=== PATIENT | female | born 1950 | race Caucasian/White ===

== ENCOUNTER 2016-11-07 09:29 | Inpatient (IN) | payer OTHER ==
[~2016-11-07] VITALS: Ht 154.9 cm; Wt 75.0 kg
[~2016-11-07 09:29] MED LIST: ALBU90AE INHALATION; AMLO-147 PO; ASPI-664 PO; BACTDS PO; CALC-459 PO; DOCU-159 PO; FURO20TA3 PO; GEMF600T60 PO; LEVO500T72 PO; LOSA100T7 PO; OMEP20CA16 PO; POTA10TA18 PO
[2016-11-07] MEDS ORDERED: ALBUTEROL 0.5% (NEB) 2.5 MG/0.5 ML AMP INH STA (09:58)
[2016-11-07] MEDS ORDERED: IBUPROFEN 600 MG TAB PO ONE (10:00)
[2016-11-07] MEDS ORDERED: CEFTRIAXONE 1 GM/50 ML (PMX) 50 ML IVPB ONE (10:00)
[2016-11-07] MEDS ORDERED: SOD CHLORIDE 0.9% 1,000 ML IV ONE ×2 (10:00→12:30)
[2016-11-07] MEDS ORDERED: ALPRAZOLAM 0.25 MG TAB PO ONE (10:00)
[2016-11-07] MEDS ORDERED: VANCOMYCIN 1 GM (PMX) 250 ML IVPB SCH (10:00)
[2016-11-07 10:11] LABS: ADD SCAN DIFF NO
[2016-11-07 10:15] LABS: BASOPHILS % 0.3 % (0.0-2.0); EOSINOPHILS # 0.2 10^3/ul (0.0-0.5); EOSINOPHILS % 1.9 % (0.0-7.0); HEMATOCRIT 43.7 % (37.0-47.0); HEMOGLOBIN 13.9 g/dl (12.0-16.0); LYMPHOCYTES # 1.2 10^3/ul (0.8-2.9); LYMPHOCYTES % 12.2 % (15.0-51.0); MEAN CORPUSCULAR HEMOGLOBIN 29.3 pg (29.0-33.0); MEAN CORPUSCULAR HGB CONC 31.8 g/dl (32.0-37.0); MEAN PLATELET VOLUME 11.5 fl (7.4-10.4); MONOCYTE # 0.6 10^3/ul (0.3-0.9); MONOCYTES % 6.2 % (0.0-11.0); NEUTROPHIL # 7.8 10^3/ul (1.6-7.5); NEUTROPHILS % 78.9 % (39.0-77.0); PLATELET COUNT 180 10^3/UL (140-415); RED BLOOD COUNT 4.75 10^6/ul (4.20-5.40); RED CELL DISTRIBUTION WIDTH 13.2 % (11.5-14.5); WHITE BLOOD COUNT 9.9 10^3/ul (4.8-10.8)
--- NOTE | 2016-11-07 10:24 | RADRPT ---
PROCEDURE: Chest Radiograph. CLINICAL INDICATION: Abdominal pain. TECHNIQUE: Single frontal chest radiograph. COMPARISON: Chest radiograph 05/10/2016 FINDINGS: The heart is magnified. Atherosclerotic calcifications are present. There is bilateral perihilar i nfiltrates or edema . No pleural effusion is seen. The bones are intact. IMPRESSION: 1. Bilateral perihilar infiltrates or edema. 2. Atherosclerotic vascular disease. RPTAT: KK .Rey Ochoa MD, MD Date Time Electronically viewed and signed by .Rey Ochoa MD, on 11/07/2016 10:23 .B/
[2016-11-07 10:30] LABS: ALBUMIN 4.2 g/dl (3.3-4.9); CHLORIDE 99 mmol/L (97-110)
[2016-11-07 10:31] LABS: POTASSIUM 4.5 mmol/L (3.5-5.1); SODIUM 143 mmol/L (135-144)
[2016-11-07 10:33] LABS: ALANINE AMINOTRANSFERASE 32 IU/L (13-69); ALBUMIN/GLOBULIN RATIO 1.07; ALKALINE PHOSPHATASE 52 IU/L (42-121); ANION GAP 19 (8-16); ASPARTATE AMINO TRANSFERASE 33 IU/L (15-46); BILIRUBIN,INDIRECT 0.4 mg/dl (0-1.1); BILIRUBIN,TOTAL 0.4 mg/dl (0.2-1.3); BLOOD UREA NITROGEN 23 mg/dl (7-20); CALCIUM 9.6 mg/dl (8.4-10.2); CARBON DIOXIDE 30 mmol/L (21-31); CREATININE 0.74 mg/dl (0.44-1.00); GLUCOSE 93 mg/dl (70-220); TOTAL PROTEIN 8.1 g/dl (6.1-8.1)
[2016-11-07 10:35] LABS: INR 0.92; PROTIME 12.4 Sec (12.2-14.2)
[2016-11-07] MEDS ORDERED: BENA20TA48 PO (10:41)
[2016-11-07] MEDS ORDERED: PRED20TA PO (10:41)
[2016-11-07 10:42] LABS: B-TYPE NATRIURETIC PEPTIDE 194 PG/ML (0-125)
[2016-11-07 10:51] LABS: TROPONIN-I < 0.012 ng/ml (0.00-0.12)
[2016-11-07] MEDS ORDERED: FUROSEMIDE 40 MG INJ IV ONE (11:00)
[2016-11-07] MEDS ORDERED: AZITHROMYCIN 500MG/NS (PMX) 250 ML IVPB ONE (12:00)
[2016-11-07 12:06] LABS: ADD UMIC YES; URINE BILIRUBIN (Dip) NEGATIVE (NEGATIVE); URINE BLOOD (Dip) 2+ (NEGATIVE); URINE COLOR LT. YELLOW (YELLOW); URINE GLUCOSE (Dip) NEGATIVE (NEGATIVE); URINE KETONES (Dip) NEGATIVE (NEGATIVE); URINE LEUKOCYTE ESTERASE (Dip) TRACE (NEGATIVE); URINE NITRITE (Dip) NEGATIVE (NEGATIVE); URINE TOTAL PROTEIN (Dip) NEGATIVE (NEGATIVE); URINE UROBILINOGEN (Dip) 0.2 E.U./dL (0.1-1.0)
[2016-11-07] MEDS ORDERED: METHYLPREDNISOLONE 125 MG INJ IV ONE (12:30)
--- NOTE | 2016-11-07 12:34 | ERA ---
ER Documentation Chief Complaint Date/Time DATE: 11/07/16 TIME: 12:29 Chief Complaint FEVER ,CHILLS , DIZZINESS , COUGH , CHEST CONGESTION HPI 66-year-old woman presents with cough, fever, shortness of breath, generalized weakness and dizziness 3 days. She denies calf swelling, no chest pain, no vomiting or diarrhea, no abdominal pain. ROS All systems reviewed and are negative except as per history of present illness. Medications Home Meds Active Scripts Sulfamethoxazole-Trimethoprim* (Bactrim* DS) 800-160 Mg Tab, 1 TAB PO BID for 10 Days, TAB Bactrim DS 1 tab po BID w/full 8 OZs H20 Prov:HERRERASUSANA V. [employer] WORKER 05/16/16 Levofloxacin* (Levaquin*) 500 Mg Tablet, 500 MG PO DAILY@06 for 10 Days, TAB Prov:HERRERAJUSTIN V. [employer] WORKER 05/16/16 Reported Medications Prednisone* (Prednisone*) 20 Mg Tab, 20 MG PO DAILY, TAB 11/07/16 Benazepril Hcl* (Benazepril Hcl*) 20 Mg Tablet, 20 MG PO DAILY, #30 TAB 11/07/16 Calcium Carbonate (Calcium Carbonate) 500 Mg Tab.chew, 1000 MG PO BID, TAB.CHEW 05/10/16 Albuterol Sulfate (Proair Respiclick) 90 Mcg Aer.pow.ba, 1 PUFF INHALATION Q4, # 1 BOTTLE 05/10/16 Amlodipine Besylate* (Amlodipine Besylate*) 10 Mg Tablet, 10 MG PO DAILY, #30 TAB 05/10/16 Gemfibrozil* (Gemfibrozil*) 600 Mg Tablet, 600 MG PO BID, TAB 05/10/16 Potassium Citrate* (Potassium Citrate* ER) 10 Meq Tablet.sa, 10 MEQ PO DAILY, TAB.SA 05/10/16 Losartan Potassium* (Losartan Potassium*) 100 Mg Tablet, 100 MG PO DAILY, TAB 05/10/16 Omeprazole* (Omeprazole*) 20 Mg Capsule.dr, 20 MG PO DAILY, #30 CAP 05/10/16 Aspirin* (Aspirin* EC) 81 Mg Tablet.dr, 81 MG PO DAILY, TAB 05/10/16 Discontinued Reported Medications Docusate Sodium* (Docusate Sodium*) 100 Mg Capsule, 100 MG PO DAILY, #30 CAP 05/10/16 Furosemide* (Furosemide*) 20 Mg Tablet, 20 MG PO DAILY, #60 TAB 05/10/16 Allergies Allergies: Coded Allergies: No Known Drug Allergies (Verified Allergy, Unknown, 05/10/16) PMhx/Soc Obesity, coronary artery disease, congestive heart failure, chronic obstructive pulmonary disease, gastroesophageal reflux disease, hypertension, anemia, recent right lower extremity cellulitis History of Surgery: No Anesthesia Reaction: No Hx Neurological Disorder: Yes (CVA) Hx Respiratory Disorders: Yes (Pneumonia, COPD) Hx Cardiac Disorders: Yes (HTN) Hx Psychiatric Problems: No Hx Miscellaneous Medical Probl: Yes (Hyperlipidemia) Hx Alcohol Use: No Hx Substance Use: No Hx Tobacco Use: No Smoking Status: Former smoker FmHx Family History: No diabetes Physical Exam Vitals Vital Signs Date Time Temp Pulse Resp B/P Pulse Ox O2 Delivery O2 Flow Rate FiO2 11/07/16 11:50 87 98 40 11/07/16 10:16 103 98 40 11/07/16 09:31 102.8 118 20 131/95 92 Physical Exam GENERAL: Well-developed, febrile, dyspneic, tachycardic HEENT: Moist mucous membranes, pink conjunctiva, no cervical spine tenderness or step-off deformities, no goiter, no jaundice or icterus, extraocular movements intact without pain. No submandibular induration, and no pharyngeal erythema NEURO: Alert and oriented 3, cranial nerves II through XII intact bilaterally, pupils equal round reactive to light, no focal deficits or facial asymmetry, sensation intact distally Strength 5/5 in upper and lower extremities bilaterally CARDIAC: Tachycardic and regular, no murmurs rubs or gallops LUNGS: Bibasilar crackles, no obvious wheezing, pleural entry bilaterally, intercostal retractions, no stridor ABDOMEN: Soft nontender, no guarding, no rigidity, no rebound, no psoas sign no obturator sign. Normoactive bowel sounds SKIN: Warm and dry to touch, no abrasions, contusions, or hematomas, no lacerations, no ecchymosis, no target lesions, and without ulcers EXTREMITIES: No clubbing cyanosis, 1+ pitting edema in the lower extremities, calves are bilaterally symmetrical, no Homans sign, no popliteal cord sign. Distal pulses equal and bilateral PSYCH: Normal affect without agitation or irritability Result Diagram: 11/07/1656 11/07/1656 Results 24 hrs Laboratory Tests Test 11/07/16 09:56 11/07/16 11:50 11/07/16 12:19 White Blood Count 9.910^3/ul Red Blood Count 4.7510^6/ul Hemoglobin 13.9g/dl Hematocrit 43.7% Mean Corpuscular Volume 92.0fl Mean Corpuscular Hemoglobin 29.3pg Mean Corpuscular Hemoglobin Concent 31.8g/dl Red Cell Distribution Width 13.2% Platelet Count 13708^3/UL Mean Platelet Volume 11.5fl Neutrophils % 78.9% Lymphocytes % 12.2% Monocytes % 6.2% Eosinophils % 1.9% Basophils % 0.3% Nucleated Red Blood Cells % 0.0/100WBC Neutrophils # 7.810^3/ul Lymphocytes # 1.210^3/ul Monocytes # 0.610^3/ul Eosinophils # 0.210^3/ul Basophils # 0.010^3/ul Nucleated Red Blood Cells # 0.010^3/ul Prothrombin Time 12.4Sec Prothrombin Time Ratio 1.0 INR International Normalized Ratio 0.92 Sodium Level 143mmol/L Potassium Level 4.5mmol/L Chloride Level 99mmol/L Carbon Dioxide Level 30mmol/L Anion Gap 19 Blood Urea Nitrogen 23mg/dl Creatinine 0.74mg/dl Glucose Level 93mg/dl Lactic Acid Level 1.5mmol/L Calcium Level 9.6mg/dl Total Bilirubin 0.4mg/dl Direct Bilirubin 0.00mg/dl Indirect Bilirubin 0.4mg/dl Aspartate Amino Transf (AST/SGOT) 33IU/L Alanine Aminotransferase (ALT/SGPT) 32IU/L Alkaline Phosphatase 52IU/L Troponin I < 0.012ng/ml B-Type Natriuretic Peptide 194PG/ML Total Protein 8.1g/dl Albumin 4.2g/dl Globulin 3.90g/dl Albumin/Globulin Ratio 1.07 Lipase 99U/L Urine Color LT. YELLOW Urine Clarity CLEAR Urine pH 5.0 Urine Specific [place] 1.015 Urine Ketones NEGATIVE Urine Nitrite NEGATIVE Urine Bilirubin NEGATIVE Urine Urobilinogen 0.2 E.U./dL Urine Leukocyte Esterase TRACE Urine Microscopic RBC 5-10/HPF Urine Microscopic WBC 5-10/HPF Urine Hemoglobin 2+ Urine Glucose NEGATIVE% Urine Total Protein NEGATIVE Blood Gas Specimen Source Blood arterial Arterial Blood Date Drawn 11/07/2016 12:30:23 PM Arterial Blood pH (Temp corrected) 7.347 Arterial Blood pCO2 (Temp correct) 54.2mmhg Arterial Blood pO2 (Temp corrected) 122.9mmHG Arterial Blood HCO3 29.0mmol/L Arterial Blood Base Excess 2.4mmol/L Arterial Blood Oxygen Saturation 98.1mmHG Trevor Test ACCEPTAB Arterial Blood Gas Puncture Site Right Radial Arterial Blood Carboxyhemoglobin 0.3% Arterial Blood Methemoglobin 0.5% Blood Gas A-a O2 Differential 100.0mmHg Oxyhemoglobin Percent 97.3% Total Hemoglobin 12.4g/dl Blood Gas Temperature 37.0C Blood Gas Respiration Rate 16.0 Blood Gas Actual Respiration Rate 24 Blood Gas Modality MASK - BIPAP FiO2 40.0% Blood Gas IPAP/EPAP Ratio 15/5 Blood Gas Notified Whom JLD Blood Gas Notified Time 11/07/2016 12:49:11 PM Current Medications Medications (Trade) Dose Ordered Sig/Justin Route PRN Reason Start Time Stop Time Status Last Admin Dose Admin Sodium Chloride (NS) 1,000 ml @ 1,000 mls/hr Q1H ONCE IV 11/07/16 10:00 11/07/16 10:59 DC 11/07/16 10:22 Albuterol (Proventil 0.5% (Neb)) 10 mg ONCE STAT INH 11/07/16 09:58 11/07/16 10:01 DC 11/07/16 10:19 Ibuprofen (Motrin) 600 mg ONCE ONCE PO 11/07/16 10:00 11/07/16 10:01 DC 11/07/16 10:23 Alprazolam 0.5 mg 0.5 mg ONCE ONCE PO 11/07/16 10:00 11/07/16 10:01 DC 11/07/16 10:23 Ceftriaxone Sodium 50 ml @ 100 mls/hr ONCE ONCE IVPB 11/07/16 10:00 11/07/16 10:29 DC 11/07/16 10:23 Vancomycin HCl (Vancocin) 250 ml @ 125 mls/hr ONCE IVPB 11/07/16 10:00 11/07/16 11:59 DC 11/07/16 11:04 Furosemide 40 mg 40 mg ONCE ONCE IV 11/07/16 11:00 11/07/16 11:01 DC 11/07/16 11:04 Azithromycin (Zithromax 500mg/ NS (Pmx)) 250 ml @ 250 mls/hr ONCE ONCE IVPB 11/07/16 12:00 11/07/16 12:59 DC 11/07/16 12:30 Procedures/MDM IV line was established patient was placed on monitoring manager rhythm strip revealed a sinus tachycardia at 108 bpm with upright P and T waves. Patient was febrile. Blood and urine cultures have been ordered results are pending I will follow-up. EKG performed, read by me revealed a sinus tachycardia at 108 bpm, normal axis, narrow QRS complex, no concerning ST elevations or depressions noted. Patient's infectious symptoms have not stabilized and the patient is at risk of rapid decompensation. The patient will be admitted for careful hydration, antibiotic therapy, and infectious source control. Patient required immediate BiPAP therapy due to her dyspnea and work of breathing. Severe Sepsis Assessment: Infectious Source: Bilateral pneumonia Severe Sepsis Managment: Blood Cultures X 2 before broad spectrum antibiotics initiated within 3 hours of recognition. 30 ml/kg NS bolus will not be completed because patient has history of congestive heart failure and has mild to moderate decompensation today Initial Lactate: 1.5 Repeat Lactate not indicated as initial < 2.0 Critical Care: Time: 40 minutes, this was time separate from other procedures. Treatments/Evaluations: Emergent fluid management, while maintaining close respiratory support. Immediate broad spectrum antibiotic therapy. Simultaneous assessment for possible sources in order to direct therapy. Consideration for invasive and chemical support to prevent respiratory or cardiac collapse. Septic Shock Assessment (1 hour post 30 ml/kg fluid bolus): Hypotension (SBP < 90 or 40 mmHg drop, MAP < 65): Yes, although transient Lactic acid > 4.0 No Perfusion Reassessment for Septic Shock: Temp afebrile, Pulse 80, RR 16, BP 100/70 Heart Exam: Regular rate rhythm Lung Exam: Bilateral crackles Capillary Refill: Less than 2 second Peripheral Pulses: Radially present Skin: [place] warm and dry Hypotensive Treatment (not required for isolated lactic acid elevation): Comfort Care: No Central LIne: Not indicated Vasopressor started: Not indicated CBC was unremarkable, electrolytes revealed dehydration with a BUN/creatinine of 23/0.7, liver function tests were normal, troponin was negative. Lactic acid low at 1.5. ABG revealed a pH of 7.35, PCO2 54, PO2 122 revealing mild respiratory acidosis. BNP was low. Patient initially treated with furosemide 40 mg IV for suspected decompensated heart failure and hypertension. During multiple re-evaluations it was more clear that symptoms mostly attributed to bilateral infiltrates and possible early sepsis, and her blood pressure did fall so she required 2 L normal saline intravenously for early sepsis although further fluids will be held because of her CHF history. I treated her here with ceftriaxone 1 g IV, vancomycin 1 g IV , and azithromycin 500 mg IV with good response. She also received methylprednisolone 125 mg IV and albuterol 10 mg via nebulizer. She was successfully treated here in the emergency department with BiPAP and initial presentation. Influenza AB was negative. I considered further perfusion assessment with CVP measurement, SCVO2, bedside ultrasound volume assessment, passive leg raise, trial of further fluid bolus. And preceded with gentle IV hydration, IV antibiotics, and BiPAP therapy Accepting Care Team: Current data and ongoing care discussed. Time: Time of admission Primary Provider: Hospitalist Consulting: Cardiology and infectious disease Outstanding Data: none Departure Diagnosis: Primary Impression: Sepsis Qualified Code: A41.9 - Sepsis, due to unspecified organism Additional Impressions: Bilateral pneumonia Qualified Code: J18.9 - Pneumonia of both lower lobes due to infectious organism CHF (congestive heart failure) Qualified Code: I50.21 - Acute systolic congestive heart failure COPD (chronic obstructive pulmonary disease) Qualified Code: J44.1 - Chronic obstructive pulmonary disease with acute exacerbation Condition: [facility] MD November 07, 2016 12:34
[2016-11-07 12:49] LABS: Allen Test ACCEPTAB; Arterial Base Excess 2.4 mmol/L (-3.0-3); Arterial COHb 0.3 % (0.0-3.0); Arterial Fraction of Oxyhgb 97.3 % (93.0-99.0); Arterial MetHb 0.5 % (0.0-1.5); Arterial Total Hemglobin 12.4 g/dl (12.0-18.0); Blood Gas IEPAP 15/5; MODE MASK - BIPAP
[2016-11-07 14:10] VITALS: TEMP 98.9
[2016-11-07 15:07] VITALS: Ht 154.9 cm; Wt 75.0 kg
[2016-11-07 15:16] VITALS: BP 86/49; PULSE 76; RESP 22
[2016-11-07] MEDS ORDERED: SOD CHLORIDE 0.9% 500 ML IV ONE (16:00)
[2016-11-07 16:15] VITALS: PULSE 71
--- NOTE | 2016-11-07 16:39 | HP ---
Date/Time of Note Date/Time of Note DATE: 11/07/16 TIME: 16:27 Assessment/Plan VTE Prophylaxis VTE Prophylaxis Intervention: SCD's Lines/Catheters IV [facility]atheter Type (from [facility]): Saline Lock Urinary Cath still in place: No Assessment/Plan Chief Complaint/Hosp Course Impression and plan 1. Sepsis with pneumonia. Patient with hypotension and elevated temperature with source of pneumonia. Continue antibiotics for now. Follow-up on panculture. Await for clinical response. Bronchodilators as needed for dyspnea. 2. Reported O2 dependency. Patient is reports she does not know why she is in oxygen but states that she is on it indefinitely at home. She does not know how many liters of oxygen she is at home. Will titrate down as tolerated. Will get coin counter and wrapper pending clinical course. Considering patient's body composition suspect possible obesity hypoventilation syndrome. Will follow up 3. History of hypertension. Will hold antihypertensives for now considering hypertension. Will provide with IV fluids for now. 4. Dyslipidemia. Follow-up on fasting lipid panel. Statin to be started pending diagnostic result 5. Obesity. Weight reduction was advised Admission process 40 minutes Discussed plan of care with Dr. Barrientos Problems: HPI/ROS Admit Date/Time Admit Date/Time November 07, 2016 at 12:19 Hx of Present Illness There is a 66-year-old female with history of dysrhythmia, essential hypertension, CHF, asthma, reported O2 dependency, who came to [facility] due to reports of cough and generalized weakness along with increased shortness of breath for 1 week duration. According to the patient she started having cough with increased shortness of breath and generalized weakness for 1 week. She reported that one day prior to admission she started having subjective fevers and subsequently went to [facility] for further evaluation. She denies any sick contacts. She denies any chest pain or any abdominal pain or dysuria. She does report that she did take her influenza vaccine May last year. She has chest radiograph that did show bilateral perihilar infiltrates with clinical picture of that of pneumonia. She is also seen with fever as high as 101.0. No leukocytosis or elevation of heart rate however patient was seen slightly hypertensive with blood pressure as low as 86/49. Lactic acid seen at 1.2. Currently the patient remains alert and oriented. She notably did receive a dose of Solu-Medrol in the ER as well as antibiotic with vancomycin and ceftriaxone with good response. We will evaluate her for the aformentioned issues ROS 12 point review of systems obtained and entirely negative except as mentioned in history of present illness PMH/Family/Social Past Medical History Medical/surgical history 1.History of CHF with noted last echocardiogram done on May 11, 2016 with ejection fraction of 60% with stage I diastolic dysfunction 2. Essential hypertension 3. Obesity 4. History of dyslipidemia 5. History of asthma 6. Reported O2 dependency Family History Significant Family History: other (Mother and father: CAD) Social History Alcohol Use: none Smoking Status: Former smoker (3 years cigarette smoking 1 pack per day. Quit 3 years ago) Drug Use: none Exam/Review of Systems Vital Signs Vitals Vital Signs Date Time Temp Pulse Resp B/P Pulse Ox O2 Delivery O2 Flow Rate FiO2 11/07/16 16:15 71 11/07/16 15:52 Nasal Cannula 4.0 11/07/16 15:16 98.4 22 86/49 96 11/07/16 13:22 40 Exam Constitutional: alert Psych: nl mood/affect Eyes: nl conjunctiva Neck: non-tender, supple, No jvd Respiratory: wheezing Cardiovascular: regular rate and rhythm Gastrointestinal: non-tender, soft Musculoskeletal: No swelling Extremities: normal pulses Neurological: DISTRICT LEADER II-XII intact, nl mental status, nl speech Skin: nl turgor, No rash or lesions Labs Result Diagram: 11/07/1695511/07/16955 Medications Medications Current Medications Amlodipine Besylate (Norvasc) 10 mg DAILY PO ; Start 11/08/16 at 09:00 Aspirin (Halfprin) 81 mg DAILY PO ; Start 11/08/16 at 09:00 Benazepril HCl (Lotensin) 20 mg DAILY PO ; Start 11/08/16 at 09:00 Gemfibrozil (Lopid) 600 mg BID PO ; Start 11/07/16 at 21:00 Losartan Potassium (Cozaar) 100 mg DAILY PO ; Start 11/08/16 at 09:00 Potassium Citrate (Urocit-K) 10 meq DAILY PO ; Start 11/08/16 at 09:00 Calcium Carbonate (Oyster Shell Calcium) 2.5 gm BID PO ; Start 11/07/16 at 21:00 Pantoprazole 40 mg 40 mg DAILY@06 PO ; Start 11/08/16 at 06:00 Azithromycin 250 ml @ 250 mls/hr DAILY IVPB ; Start 11/08/16 at 09:00 Ceftriaxone Sodium 50 ml @ 100 mls/hr Q24H IVPB ; Start 11/08/16 at 09:00 Sodium Chloride (NS) 500 ml @ 500 mls/hr Q1H ONCE IV ; Start 11/07/16 at 16:00; Stop 11/07/16 at 16:59 BRAN HARRIS November 07, 2016 16:39
[2016-11-07] MEDS: ALBUTEROL/IPRATROPIUM (NEB) 3 ML AMP HHN SCH ×2 (17:00→21:42)
[2016-11-07] MEDS: SOD CHLORIDE 0.9% 1,000 ML IV SCH (17:35)
[2016-11-07 18:00] VITALS: BP 111/55; PULSE 77
[2016-11-07 20:02] VITALS: BP 94/51; RESP 18
[2016-11-07 20:18] VITALS: PULSE 73
[2016-11-07] MEDS: predniSONE 20 MG TAB PO SCH (21:33)
[2016-11-07] MEDS: GEMFIBROZIL 600 MG TAB PO SCH (21:33)
[2016-11-07] MEDS: CALCIUM CARBONATE 1.25 GM TAB PO SCH (21:33)
[2016-11-08] VITALS (12 sets, daily range): BP systolic 100–161; BP diastolic 56–74; PULSE 63–102; RESP 17–21
[2016-11-08] MEDS: ALBUTEROL 0.083% (NEB) 2.5 MG/3 ML AMP HHN PRN (03:30)
[2016-11-08] MEDS: PANTOPRAZOLE (EC) 40 MG TAB PO SCH (06:17)
[2016-11-08] MEDS: SOD CHLORIDE 0.9% 1,000 ML IV SCH ×2 (06:17→22:14)
[2016-11-08] MEDS: ALBUTEROL/IPRATROPIUM (NEB) 3 ML AMP HHN SCH ×4 (08:33→20:37)
[2016-11-08 08:37] LABS: ADD SCAN DIFF NO
[2016-11-08] MEDS ORDERED: BENAZEPRIL 20 MG TAB PO SCH (09:00)
[2016-11-08] MEDS ORDERED: CEFTRIAXONE 2 GM INJ IVPB SCH (09:00)
[2016-11-08] MEDS ORDERED: LOSARTAN 50 MG TAB PO SCH (09:00)
[2016-11-08 09:07] LABS: ABNORMAL IP MESSAGE 1; HEMATOCRIT 40.5 % (37.0-47.0); HEMOGLOBIN 12.6 g/dl (12.0-16.0); LYMPHOCYTES # 0.3 10^3/ul (0.8-2.9); LYMPHOCYTES % 5.3 % (15.0-51.0); MEAN CORPUSCULAR HEMOGLOBIN 29.4 pg (29.0-33.0); MEAN CORPUSCULAR HGB CONC 31.1 g/dl (32.0-37.0); MEAN CORPUSCULAR VOLUME 94.6 fl (82.0-101.0); MEAN PLATELET VOLUME 10.9 fl (7.4-10.4); MONOCYTE # 0.3 10^3/ul (0.3-0.9); MONOCYTES % 4.3 % (0.0-11.0); NEUTROPHIL # 5.6 10^3/ul (1.6-7.5); NEUTROPHILS % 89.6 % (39.0-77.0); PLATELET COUNT 196 10^3/UL (140-415); RED BLOOD COUNT 4.28 10^6/ul (4.20-5.40); WHITE BLOOD COUNT 6.3 10^3/ul (4.8-10.8)
[2016-11-08 09:20] LABS: CALCIUM 8.8 mg/dl (8.4-10.2); CREATININE 0.62 mg/dl (0.44-1.00)
[2016-11-08] MEDS: ASPIRIN (EC) 81 MG TAB PO SCH (09:20)
[2016-11-08] MEDS: POTASSIUM CITRATE (SR) 5 MEQ TAB PO SCH (09:20)
[2016-11-08] MEDS: predniSONE 20 MG TAB PO SCH ×2 (09:20→22:12)
[2016-11-08] MEDS: GEMFIBROZIL 600 MG TAB PO SCH ×2 (09:20→21:00)
[2016-11-08] MEDS: CALCIUM CARBONATE 1.25 GM TAB PO SCH ×2 (09:20→22:13)
--- NOTE | 2016-11-08 10:20 | PN ---
Date/Time of Note Date/Time of Note DATE: 11/08/16 TIME: 10:15 Assessment/Plan VTE Prophylaxis VTE Prophylaxis Intervention: SCD's Lines/Catheters [facility]from [facility] Peripheral IV Urinary Cath still in place: No Assessment/Plan Chief Complaint/Hosp Course Impression and plan 1. Sepsis with pneumonia. Patient with hypotension and elevated temperature with source of pneumonia. Continue antibiotics for now. Antitussives added for cough. 2. Reported O2 dependency. Patient is reports she does not know why she is in oxygen but states that she is on it indefinitely at home. She does not know how many liters of oxygen she is at home. . Considering patient's body composition suspect possible obesity hypoventilation syndrome. Continue to titrate down or tolerated 3. History of hypertension. Stable at present. Will resume antihypertensive 4. Dyslipidemia. on low fat/low cholesterol diet . awaiting lipid panel result 5. Obesity. Weight reduction was advised Disposition and plan: Continue antibiotics. Antitussives added. await clinical improvement of respiratory status. Discussed plan of care with Dr. Barrientos Problems: Subjective 24 Hr Interval Summary Free Text/Dictation Reports better breathing. Still has moderate cough with reported productive white phlegm Exam/Review of Systems Vital Signs Vitals Vital Signs Date Time Temp Pulse Resp B/P Pulse Ox O2 Delivery O2 Flow Rate FiO2 11/08/16 08:35 4.0 11/08/16 08:35 66 26 94 Nasal Cannula 11/08/16 08:04 98.2 147/69 11/07/16 13:22 40 Intake and Output 11/07/16 11/07/16 11/08/16 15:00 23:00 07:00 Intake Total 1050 ml 500 ml 1350 ml Balance 1050 ml 500 ml 1350 ml Exam Constitutional: alert, oriented Psych: nl mood/affect Head: normocephalic Eyes: nl conjunctiva Neck: non-tender, supple Respiratory: wheezing Cardiovascular: regular rate and rhythm Gastrointestinal: non-tender, soft Musculoskeletal: nl extremities to inspection Extremities: normal pulses Neurological: RAIL CAR UNLOADER II-XII intact, nl mental status, nl speech Skin: nl turgor Results Result Diagram: 11/08/16 0757 11/08/16 0757 Results 24 hrs Laboratory Tests Test 11/07/16 11:50 11/07/16 12:19 11/07/16 12:20 11/07/16 13:44 Urine Color LT. YELLOW Urine Clarity CLEAR Urine pH 5.0 Urine Specific [place] 1.015 Urine Ketones NEGATIVE Urine Nitrite NEGATIVE Urine Bilirubin NEGATIVE Urine Urobilinogen 0.2 E.U./dL Urine Leukocyte Esterase TRACE H Urine Microscopic RBC 5-10 Urine Microscopic WBC 5-10 Urine Hemoglobin 2+ H Urine Glucose NEGATIVE Urine Total Protein NEGATIVE Blood Gas Specimen Source Blood arterial Arterial Blood Date Drawn 11/07/2016 12:30:23 PM Arterial Blood pH (Temp corrected) 7.347 L Arterial Blood pCO2 (Temp correct) 54.2 H Arterial Blood pO2 (Temp corrected) 122.9 H Arterial Blood HCO3 29.0 H Arterial Blood Base Excess 2.4 Arterial Blood Oxygen Saturation 98.1 H Trevor Test ACCEPTAB Arterial Blood Gas Puncture Site Right Radial Arterial Blood Carboxyhemoglobin 0.3 Arterial Blood Methemoglobin 0.5 Blood Gas A-a O2 Differential 100.0 H Oxyhemoglobin Percent 97.3 Total Hemoglobin 12.4 Blood Gas Temperature 37.0 Blood Gas Respiration Rate 16.0 Blood Gas Actual Respiration Rate 24 Blood Gas Modality MASK - BIPAP FiO2 40.0 Blood Gas IPAP/EPAP Ratio 15 Blood Gas Notified Whom JLD Blood Gas Notified Time 11/07/2016 12:49:11 PM Lactic Acid Level 1.5 1.2 Test 11/08/16 07:57 White Blood Count 6.3 # Red Blood Count 4.28 Hemoglobin 12.6 Hematocrit 40.5 Mean Corpuscular Volume 94.6 Mean Corpuscular Hemoglobin 29.4 Mean Corpuscular Hemoglobin Concent 31.1 L Red Cell Distribution Width 13.0 Platelet Count 196 Mean Platelet Volume 10.9 H Neutrophils % 89.6 H Lymphocytes % 5.3 L Monocytes % 4.3 Eosinophils % 0.0 Basophils % 0.0 Nucleated Red Blood Cells % 0.0 Neutrophils # 5.6 Lymphocytes # 0.3 L Monocytes # 0.3 Eosinophils # 0.0 Basophils # 0.0 Nucleated Red Blood Cells # 0.0 Sodium Level 142 Potassium Level 4.0 Chloride Level 105 Carbon Dioxide Level 31 Anion Gap 10 # Blood Urea Nitrogen 17 Creatinine 0.62 Glucose Level 148 # Calcium Level 8.8 Medications Medications Current Medications Amlodipine Besylate (Norvasc) 10 mg DAILY PO ; Start 11/08/16 at 09:00; Status Future Hold Aspirin (Halfprin) 81 mg DAILY PO Last administered on 11/08/16 09:20; Admin Dose 81 MG; Start 11/08/16 at 09:00 Benazepril HCl (Lotensin) 20 mg DAILY PO ; Start 11/08/16 at 09:00; Status Future Hold Gemfibrozil (Lopid) 600 mg BID PO Last administered on 11/08/16 09:20; Admin Dose 600 MG; Start 11/07/16 at 21:00 Losartan Potassium (Cozaar) 100 mg DAILY PO ; Start 11/08/16 at 09:00; Status Future Hold Potassium Citrate (Urocit-K) 10 meq DAILY PO Last administered on 11/08/16 09: 20; Admin Dose 10 MEQ; Start 11/08/16 at 09:00 Calcium Carbonate (Oyster Shell Calcium) 2.5 gm BID PO Last administered on 11/08 09:20; Admin Dose 2.5 GM; Start 11/07/16 at 21:00 Pantoprazole 40 mg 40 mg DAILY@06 PO Last administered on 11/08/16 06:17; Admin Dose 40 MG; Start 11/08/16 at 06:00 Azithromycin 250 ml @ 250 mls/hr DAILY IVPB ; Start 11/08/16 at 09:00 Ceftriaxone Sodium 50 ml @ 100 mls/hr Q24H IVPB ; Start 11/08/16 at 09:00 Sodium Chloride (NS) 1,000 ml @ 75 mls/hr [id number] IV Last administered on 06:17; Admin Dose 75 MLS/HR; Start 11/07/16 at 17:00 Prednisone (Prednisone) 40 mg BID PO Last administered on 11/08/16 09:20; Admin Dose 40 MG; Start 11/07/16 at 21:00 Guaifenesin (Mucinex) 600 mg BID PO ; Start 11/08/16 at 10:00 Guaifenesin/ Codeine Phosphate (Robitussin Ac Liquid Cup) 10 ml Q4H PRN PO cough; Start 11/08/16 at 10:00 BRAN HARRIS November 08, 2016 10:19
[2016-11-08] MEDS: GUAIFENESIN LA 600 MG TABSR PO SCH ×2 (12:57→22:12)
[2016-11-08] MEDS: AMLODIPINE 10 MG TAB PO SCH (12:57)
[2016-11-08] MEDS: AZITHROMYCIN 500MG/NS (PMX) 250 ML IVPB SCH (12:58)
[2016-11-08] MEDS: CEFTRIAXONE 2 GM/NS 50 ML IVPB SCH (12:58)
[2016-11-08] MEDS: ACETAMINOPHEN 325 MG TAB PO PRN (18:57)
[2016-11-09] VITALS (12 sets, daily range): BP systolic 121–151; BP diastolic 60–71; PULSE 61–83; RESP 18–20
[2016-11-09] MEDS: PANTOPRAZOLE (EC) 40 MG TAB PO SCH (06:25)
[2016-11-09 07:36] LABS: ADD SCAN DIFF NO
[2016-11-09 07:42] LABS: ABNORMAL IP MESSAGE 1; HEMATOCRIT 39.7 % (37.0-47.0); LYMPHOCYTES # 0.3 10^3/ul (0.8-2.9); MEAN CORPUSCULAR HEMOGLOBIN 28.6 pg (29.0-33.0); MEAN CORPUSCULAR HGB CONC 30.2 g/dl (32.0-37.0); MEAN CORPUSCULAR VOLUME 94.5 fl (82.0-101.0); MEAN PLATELET VOLUME 10.8 fl (7.4-10.4); MONOCYTE # 0.4 10^3/ul (0.3-0.9); MONOCYTES % 6.9 % (0.0-11.0); NEUTROPHIL # 4.8 10^3/ul (1.6-7.5); NEUTROPHILS % 85.3 % (39.0-77.0); PLATELET COUNT 173 10^3/UL (140-415); WHITE BLOOD COUNT 5.6 10^3/ul (4.8-10.8)
[2016-11-09] MEDS: ALBUTEROL/IPRATROPIUM (NEB) 3 ML AMP HHN SCH ×4 (08:13→20:52)
[2016-11-09] MEDS: GUAIFENESIN/CODEINE 5ML CUP PO PRN ×2 (08:33→14:32)
--- NOTE | 2016-11-09 10:00 | PN ---
Date/Time of Note Date/Time of Note DATE: 11/09/16 TIME: 09:57 Assessment/Plan Lines/Catheters IV Catheter Type (from [facility]): Saline Lock Urinary Cath still in place: No Assessment/Plan Chief Complaint/Hosp Course Impression and plan 1. Sepsis with pneumonia. Afebrile at present.. Continue antibiotics for now. Antitussives added for cough. 2. Reported O2 dependency. Patient is reports she does not know why she is in oxygen but states that she is on it indefinitely at home. . Considering patient 's body composition suspect possible obesity hypoventilation syndrome. Continue to monitor for ability to titrate down on O2 3. History of hypertension. Stable at present. Will resume antihypertensive 4. Dyslipidemia. on low fat/low cholesterol diet 5. Obesity. Weight reduction was advised Disposition and plan: Continue antibiotics. Physical therapy to follow. Await clinical improvement of respiratory status Discussed plan of care with Dr. Barrientos Problems: Subjective 24 Hr Interval Summary Free Text/Dictation Still reports having moderate cough Exam/Review of Systems Vital Signs Vitals Vital Signs Date Time Temp Pulse Resp B/P Pulse Ox O2 Delivery O2 Flow Rate FiO2 11/09/16 08:24 61 11/09/16 08:17 24 95 Nasal Cannula 3.0 11/09/16 07:44 98.2 124/71 11/07/16 13:22 40 Intake and Output 11/08/16 11/08/16 11/09/16 15:00 23:00 07:00 Intake Total 200 ml Balance 200 ml Exam Constitutional: alert, obese, oriented Psych: nl mood/affect Head: normocephalic Neck: supple Respiratory: congested cough Gastrointestinal: non-tender, soft Musculoskeletal: No swelling Neurological: CLINICAL PSYCHIATRIST II-XII intact, nl mental status, nl speech Skin: nl turgor Results Result Diagram: 11/09/16 0710 11/08/16 0757 Results 24 hrs Laboratory Tests Test 11/09/16 07:10 White Blood Count 5.6 Red Blood Count 4.20 Hemoglobin 12.0 Hematocrit 39.7 Mean Corpuscular Volume 94.5 Mean Corpuscular Hemoglobin 28.6 L Mean Corpuscular Hemoglobin Concent 30.2 L Red Cell Distribution Width 13.0 Platelet Count 173 Mean Platelet Volume 10.8 H Neutrophils % 85.3 H Lymphocytes % 6.0 L Monocytes % 6.9 Eosinophils % 0.0 Basophils % 0.0 Nucleated Red Blood Cells % 0.0 Neutrophils # 4.8 Lymphocytes # 0.3 L Monocytes # 0.4 Eosinophils # 0.0 Basophils # 0.0 Nucleated Red Blood Cells # 0.0 Medications Medications Current Medications Amlodipine Besylate (Norvasc) 10 mg DAILY PO Last administered on 11/08/16 12: 57; Admin Dose 10 MG; Start 11/08/16 at 09:00; Status Future hold Aspirin (Halfprin) 81 mg DAILY PO Last administered on 11/08/16 09:20; Admin Dose 81 MG; Start 11/08/16 at 09:00 Benazepril HCl (Lotensin) 20 mg DAILY PO ; Start 11/08/16 at 09:00; Status Future Hold Gemfibrozil (Lopid) 600 mg BID PO Last administered on 11/08/16 21:00; Admin Dose 600 MG; Start 11/07/16 at 21:00 Losartan Potassium (Cozaar) 100 mg DAILY PO ; Start 11/08/16 at 09:00; Status Future Hold Potassium Citrate (Urocit-K) 10 meq DAILY PO Last administered on 11/08/16 09: 20; Admin Dose 10 MEQ; Start 11/08/16 at 09:00 Calcium Carbonate (Oyster Shell Calcium) 2.5 gm BID PO Last administered on 11/08 22:13; Admin Dose 2.5 GM; Start 11/07/16 at 21:00 Pantoprazole 40 mg 40 mg DAILY@06 PO Last administered on 11/09/16 06:25; Admin Dose 40 MG; Start 11/08/16 at 06:00 Azithromycin 250 ml @ 250 mls/hr DAILY IVPB Last administered on 11/08/16 12: 58; Admin Dose 250 MLS/HR; Start 11/08/16 at 09:00 Ceftriaxone Sodium 50 ml @ 100 mls/hr Q24H IVPB Last administered on 11/08/16 12:58; Admin Dose 100 MLS/HR; Start 11/08/16 at 09:00 Sodium Chloride (NS) 1,000 ml @ 75 mls/hr [id number] IV Last administered on 22:14; Admin Dose 75 MLS/HR; Start 11/07/16 at 17:00 Prednisone (Prednisone) 40 mg BID PO Last administered on 11/08/16 22:12; Admin Dose 40 MG; Start 11/07/16 at 21:00 Guaifenesin (Mucinex) 600 mg BID PO Last administered on 11/08/16 22:12; Admin Dose 600 MG; Start 11/08/16 at 10:00 Guaifenesin/ Codeine Phosphate (Robitussin Ac Liquid Cup) 10 ml Q4H PRN PO cough Last administered on 11/09/16 08:33; Admin Dose 10 ML; Start 11/08/16 at 10:00 Acetaminophen (Tylenol Tab) 650 mg Q6H PRN PO PAIN AND OR ELEVATED TEMP Last administered on 11/08/16 18:57; Admin Dose 650 MG; Start 11/08/16 at 19:00 BRAN HARRIS November 09, 2016 10:00
[2016-11-09 10:03] LABS: POTASSIUM 4.4 mmol/L (3.5-5.1)
[2016-11-09 10:05] LABS: CREATININE 0.55 mg/dl (0.44-1.00)
[2016-11-09 10:06] LABS: CALCIUM 9.1 mg/dl (8.4-10.2)
[2016-11-09] MEDS: CEFTRIAXONE 2 GM/NS 50 ML IVPB SCH (10:21)
[2016-11-09] MEDS: POTASSIUM CITRATE (SR) 5 MEQ TAB PO SCH (10:21)
[2016-11-09 10:22] LABS: CHOL/HDL RATIO 2.5 RATIO
[2016-11-09] MEDS: AMLODIPINE 10 MG TAB PO SCH (10:22)
[2016-11-09] MEDS: ASPIRIN (EC) 81 MG TAB PO SCH (10:22)
[2016-11-09] MEDS: GUAIFENESIN LA 600 MG TABSR PO SCH ×2 (10:22→23:14)
[2016-11-09] MEDS: CALCIUM CARBONATE 1.25 GM TAB PO SCH ×2 (10:22→23:15)
[2016-11-09] MEDS: predniSONE 20 MG TAB PO SCH ×2 (10:22→23:14)
[2016-11-09] MEDS: BENZONATATE 100 MG CAP PO SCH ×3 (11:00→23:15)
[2016-11-09] MEDS: AZITHROMYCIN 500MG/NS (PMX) 250 ML IVPB SCH (11:54)
[2016-11-09] MEDS: GEMFIBROZIL 600 MG TAB PO SCH ×2 (12:06→23:14)
[2016-11-09] MEDS: SOD CHLORIDE 0.9% 1,000 ML IV SCH (13:54)
--- NOTE | 2016-11-09 21:45 | RADRPT ---
PROCEDURE: XR Chest. CLINICAL INDICATION: Shortness of breath. TECHNIQUE: Single frontal view. COMPARISON: 11/07/2016. FINDINGS: There is bilateral air space and interstitial disease consistent with pulmonary edema. There are lo w lung volumes. There is increased density of the right hilum. The heart is enlarged. There is calcification in the aorta consistent with atherosclerosis. There is no pleural effusion. There is no pneumothorax. IMPRESSION: 1. Pulmonary edema. 2. Increased density in the right hilum. This may indicate a mass. Correlation with CT scan of e chest should be considered. 3. Cardiomegaly and atherosclerosis. RPTAT: QQ .Lorenzo Andino MD, MD Date Time Electronically viewed and signed by .Lorenzo Andino MD, MD on 11/09/2016 21:44 .R/
[2016-11-10] VITALS (12 sets, daily range): BP systolic 121–185; BP diastolic 58–79; PULSE 58–109; RESP 16–20
[2016-11-10] MEDS ORDERED: hydrALAzine 20 MG INJ IV PRN (05:00)
[2016-11-10] MEDS: PANTOPRAZOLE (EC) 40 MG TAB PO SCH (05:37)
[2016-11-10] MEDS: ACETAMINOPHEN 325 MG TAB PO PRN (05:37)
[2016-11-10 08:38] LABS: ADD SCAN DIFF NO
[2016-11-10 08:49] LABS: BASOPHILS % 0.2 % (0.0-2.0); HEMATOCRIT 45.3 % (37.0-47.0); LYMPHOCYTES % 16.9 % (15.0-51.0); MEAN CORPUSCULAR HEMOGLOBIN 29.1 pg (29.0-33.0); MEAN CORPUSCULAR HGB CONC 30.9 g/dl (32.0-37.0); MEAN CORPUSCULAR VOLUME 94.2 fl (82.0-101.0); MEAN PLATELET VOLUME 11.1 fl (7.4-10.4); MONOCYTE # 0.3 10^3/ul (0.3-0.9); MONOCYTES % 5.2 % (0.0-11.0); NEUTROPHIL # 4.3 10^3/ul (1.6-7.5); NEUTROPHILS % 74.4 % (39.0-77.0); PLATELET COUNT 212 10^3/UL (140-415); RED BLOOD COUNT 4.81 10^6/ul (4.20-5.40); RED CELL DISTRIBUTION WIDTH 13.2 % (11.5-14.5); WHITE BLOOD COUNT 5.8 10^3/ul (4.8-10.8)
[2016-11-10] MEDS: ALBUTEROL/IPRATROPIUM (NEB) 3 ML AMP HHN SCH ×4 (08:53→21:54)
[2016-11-10 09:29] LABS: POTASSIUM 4.5 mmol/L (3.5-5.1)
[2016-11-10 09:31] LABS: CREATININE 0.55 mg/dl (0.44-1.00)
[2016-11-10 09:32] LABS: CALCIUM 9.8 mg/dl (8.4-10.2)
[2016-11-10] MEDS: CEFTRIAXONE 2 GM/NS 50 ML IVPB SCH (10:22)
[2016-11-10] MEDS: AZITHROMYCIN 500MG/NS (PMX) 250 ML IVPB SCH (10:22)
[2016-11-10] MEDS: predniSONE 20 MG TAB PO SCH ×2 (10:23→20:05)
[2016-11-10] MEDS: CALCIUM CARBONATE 1.25 GM TAB PO SCH ×2 (10:23→20:04)
[2016-11-10] MEDS: GUAIFENESIN LA 600 MG TABSR PO SCH ×2 (10:23→20:04)
[2016-11-10] MEDS: GEMFIBROZIL 600 MG TAB PO SCH ×2 (10:24→20:04)
[2016-11-10] MEDS: AMLODIPINE 10 MG TAB PO SCH (10:24)
[2016-11-10] MEDS: FUROSEMIDE 40 MG INJ IV SCH (10:24)
[2016-11-10] MEDS: POTASSIUM CITRATE (SR) 5 MEQ TAB PO SCH (10:24)
[2016-11-10] MEDS: BENZONATATE 100 MG CAP PO SCH ×3 (10:25→20:05)
[2016-11-10] MEDS: ASPIRIN (EC) 81 MG TAB PO SCH (10:25)
--- NOTE | 2016-11-10 10:26 | PN ---
Date/Time of Note Date/Time of Note DATE: 11/10/16 TIME: 10:24 Assessment/Plan VTE Prophylaxis VTE Prophylaxis Intervention: ambulation, SCD's Lines/Catheters IV [facility]from [facility] Peripheral IV Urinary Cath still in place: No Assessment/Plan Chief Complaint/Hosp Course Impression and plan 1. Sepsis with pneumonia. Afebrile at present.. Continue antibiotics for now. Antitussives added for cough.. Recent x-ray with ulnar edema and possible mass. Follow-up CT scan of the chest 2. Reported O2 dependency. Patient is reports she does not know why she is in oxygen but states that she is on it indefinitely at home. . Considering patient 's body composition suspect possible obesity hypoventilation syndrome. Continue titration of O2 down as tolerated 3. History of hypertension. Stable at present. Will resume antihypertensive 4. Dyslipidemia. on low fat/low cholesterol diet 5. Obesity. Weight reduction was advised Disposition and plan: Continue antibiotics. We'll order CT scan of the chest to follow-up on possible mass in lung. Continue with antitussives. We'll get valet parker pending clinical course Discussed plan of care with Dr. Barrientos Problems: Subjective 24 Hr Interval Summary Free Text/Dictation Reports better breathing. Still states she has moderate cough Exam/Review of Systems Vital Signs Vitals Vital Signs Date Time Temp Pulse Resp B/P Pulse Ox O2 Delivery O2 Flow Rate FiO2 11/10/16 08:56 94 22 94 Nasal Cannula 3.0 11/10/16 07:50 98.5 132/62 11/07/16 13:22 40 Intake and Output 11/09/16 11/09/16 11/10/16 15:00 23:00 07:00 Intake Total 1700 ml Balance 1700 ml Exam Constitutional: alert, obese, oriented Psych: nl mood/affect Head: normocephalic Neck: No jvd Respiratory: congested cough, diminished breath sounds Cardiovascular: regular rate and rhythm Gastrointestinal: non-tender, soft Extremities: No edema Neurological: nl mental status, nl speech Results Result Diagram: 11/10/16 0800 11/10/16 0800 Results 24 hrs Laboratory Tests Test 11/10/16 08:00 White Blood Count 5.8 Red Blood Count 4.81 Hemoglobin 14.0 Hematocrit 45.3 Mean Corpuscular Volume 94.2 Mean Corpuscular Hemoglobin 29.1 Mean Corpuscular Hemoglobin Concent 30.9 L Red Cell Distribution Width 13.2 Platelet Count 212 # Mean Platelet Volume 11.1 H Neutrophils % 74.4 Lymphocytes % 16.9 Monocytes % 5.2 Eosinophils % 0.0 Basophils % 0.2 Nucleated Red Blood Cells % 0.0 Neutrophils # 4.3 Lymphocytes # 1.0 Monocytes # 0.3 Eosinophils # 0.0 Basophils # 0.0 Nucleated Red Blood Cells # 0.0 Sodium Level 144 Potassium Level 4.5 Chloride Level 99 Carbon Dioxide Level 32 H Anion Gap 18 H Blood Urea Nitrogen 14 Creatinine 0.55 Glucose Level 107 Calcium Level 9.8 Medications Medications Current Medications Amlodipine Besylate (Norvasc) 10 mg DAILY PO Last administered on 11/09/16 10: 22; Admin Dose 10 MG; Start 11/08/16 at 09:00; Status Future hold Aspirin (Halfprin) 81 mg DAILY PO Last administered on 11/09/16 10:22; Admin Dose 81 MG; Start 11/08/16 at 09:00 Benazepril HCl (Lotensin) 20 mg DAILY PO ; Start 11/08/16 at 09:00; Status Future Hold Gemfibrozil (Lopid) 600 mg BID PO Last administered on 11/09/16 23:14; Admin Dose 600 MG; Start 11/07/16 at 21:00 Losartan Potassium (Cozaar) 100 mg DAILY PO ; Start 11/08/16 at 09:00; Status Future Hold Potassium Citrate (Urocit-K) 10 meq DAILY PO Last administered on 11/09/16 10: 21; Admin Dose 10 MEQ; Start 11/08/16 at 09:00 Calcium Carbonate (Oyster Shell Calcium) 2.5 gm BID PO Last administered on 23:15; Admin Dose 2.5 GM; Start 11/07/16 at 21:00 Pantoprazole 40 mg 40 mg DAILY@06 PO Last administered on 11/10/16 05:37; Admin Dose 40 MG; Start 11/08/16 at 06:00 Azithromycin 250 ml @ 250 mls/hr DAILY IVPB Last administered on 11/09/16 11: 54; Admin Dose 250 MLS/HR; Start 11/08/16 at 09:00 Ceftriaxone Sodium (Rocephin) 50 ml @ 100 mls/hr Q24H IVPB Last administered on 11/09/16 10:21; Admin Dose 100 MLS/HR; Start 11/08/16 at 09:00 Prednisone (Prednisone) 40 mg BID PO Last administered on 11/09/16 23:14; Admin Dose 40 MG; Start 11/07/16 at 21:00 Guaifenesin (Mucinex) 600 mg BID PO Last administered on 11/09/16 23:14; Admin Dose 600 MG; Start 11/08/16 at 10:00 Guaifenesin/ Codeine Phosphate (Robitussin Ac Liquid Cup) 10 ml Q4H PRN PO cough Last administered on 11/09/16 14:32; Admin Dose 10 ML; Start 11/08/16 at 10:00 Acetaminophen (Tylenol Tab) 650 mg Q6H PRN PO PAIN AND OR ELEVATED TEMP Last administered on 11/10/16 05:37; Admin Dose 650 MG; Start 11/08/16 at 19:00 Benzonatate (Tessalon) 200 mg TID PO Last administered on 11/09/16 23:15; Admin Dose 200 MG; Start 11/09/16 at 11:00 Hydralazine HCl (Apresoline) 10 mg Q4H PRN IV ELEVATED SYSTOLIC BP Last administered on 11/10/16 05:38; Admin Dose 10 MG; Start 11/10/16 at 05:00 Furosemide (Lasix) 40 mg DAILY IV ; Start 11/10/16 at 09:30 BRAN HARRIS November 10, 2016 10:26
--- NOTE | 2016-11-10 13:03 | RADRPT ---
PROCEDURE: CT CHEST WITHOUT CONTRAST CLINICAL INDICATION: Possible lung mass TECHNIQUE: Volumetrically acquired images of the thorax obtained without intravenous contrast were reformatted in the axial, coronal, and sagittal planes. CTDI = 15.9 mGy; DLP = 590 mGy-cm. One or more of the following dose reduction technique were used: Automatic exposure control, adjustment of the mA and/or kV according to patient size, and use of iterative reconstruction technique. COMPARISON: Chest x-ray from 11/10/2016. FINDINGS: LOWER NECK AND CHEST WALL: A heterogeneous thyroid gland is seen. AIRWAYS: The trachea and large airways are normal. Minimal bronchial wall thickening is seen. T here is of traction bronchiectasis are seen throughout the lungs. LUNGS: There is textured ground-glass, interstitial thickening, and volume loss associated with trac tion bronchiectasis and bronchiolectasis seen both in the upper and lower lobes. There are occasiona l centrilobular nodules seen in the right middle lobe and right lower lobe and a few occasional nodu les are also seen in the left lower lobe.. PLEURA: Unremarkable. No pleural thickening or effusions. MEDIASTINUM: No mediastinal mass. LYMPH NODES: No significant axillary, hilar, or mediastinal lymphadenopathy by CT size criteria. CARDIAC: Moderate cardiomegaly. No pericardial effusion or thickening. VASCULAR: The main pulmonary measures 39 mm. Aortic and coronary atherosclerotic calcifications ar e present. OSSEOUS: No suspicious osseous lesions. Scattered degenerative changes of the thoracic spine is vis ualized. Limited evaluation of the upper abdomen demonstrates cholelithiasis. IMPRESSION: 1. Moderate cardiomegaly with enlargement of the main and peripheral pulmonary arteries suggestive o f pulmonary arterial hypertension. 2. Bilateral textured ground-glass with interstitial thickening, volume loss, and traction bronchiec tasis is seen with scattered centrilobular nodules are suggestive of chronic hypersensitivity pneumo nitis. Other considerations for an airways centered interstitial process may also be considered such as collagen vascular diseases, inhalational lung injuries, and others. 3. Cholelithiasis. 4. Atherosclerosis. RPTAT:PP .Kamaljit Pollard MD, Date Time Electronically viewed and signed by .Kamaljit Pollard MD, on 11/10/2016 13:02 .[place]
[2016-11-10] MEDS: ALBUTEROL 0.083% (NEB) 2.5 MG/3 ML AMP HHN PRN (21:53)
[2016-11-11] VITALS (7 sets, daily range): BP systolic 127–140; BP diastolic 67–98; PULSE 61–77; RESP 18–20
[2016-11-11] MEDS: PANTOPRAZOLE (EC) 40 MG TAB PO SCH (05:07)
[2016-11-11] MEDS: ALBUTEROL/IPRATROPIUM (NEB) 3 ML AMP HHN SCH ×2 (07:24→12:07)
[2016-11-11 08:28] LABS: ADD SCAN DIFF NO
[2016-11-11 08:38] LABS: HEMATOCRIT 41.1 % (37.0-47.0); HEMOGLOBIN 12.6 g/dl (12.0-16.0); MEAN CORPUSCULAR HEMOGLOBIN 28.4 pg (29.0-33.0); MEAN CORPUSCULAR HGB CONC 30.7 g/dl (32.0-37.0); MEAN CORPUSCULAR VOLUME 92.6 fl (82.0-101.0); MEAN PLATELET VOLUME 10.9 fl (7.4-10.4); PLATELET COUNT 193 10^3/UL (140-415); RED BLOOD COUNT 4.44 10^6/ul (4.20-5.40); RED CELL DISTRIBUTION WIDTH 13.1 % (11.5-14.5); WHITE BLOOD COUNT 4.5 10^3/ul (4.8-10.8)
[2016-11-11] MEDS: predniSONE 20 MG TAB PO SCH (09:23)
[2016-11-11] MEDS: POTASSIUM CITRATE (SR) 5 MEQ TAB PO SCH (09:23)
[2016-11-11] MEDS: GEMFIBROZIL 600 MG TAB PO SCH (09:23)
[2016-11-11] MEDS: CALCIUM CARBONATE 1.25 GM TAB PO SCH (09:23)
[2016-11-11] MEDS: BENZONATATE 100 MG CAP PO SCH ×2 (09:23→13:00)
[2016-11-11] MEDS: GUAIFENESIN LA 600 MG TABSR PO SCH (09:23)
[2016-11-11] MEDS: ASPIRIN (EC) 81 MG TAB PO SCH (09:23)
[2016-11-11] MEDS: FUROSEMIDE 40 MG INJ IV SCH (09:26)
[2016-11-11] MEDS: CEFTRIAXONE 2 GM/NS 50 ML IVPB SCH (09:38)
[2016-11-11 09:55] LABS: CALCIUM 9.2 mg/dl (8.4-10.2); CREATININE 0.63 mg/dl (0.44-1.00); POTASSIUM 4.2 mmol/L (3.5-5.1)
[2016-11-11 09:59] LABS: LYMPHOCYTES # 0.9 10^3/ul (0.8-2.9); MONOCYTE # 0.2 10^3/ul (0.3-0.9); NEUTROPHIL # 3.2 10^3/ul (1.6-7.5)
[2016-11-11] MEDS ORDERED: ADV25050 INHALATION (10:21)
[2016-11-11] MEDS ORDERED: ALBU90AE INHALATION (10:21)
[2016-11-11] MEDS ORDERED: LEVO500T72 PO (10:21)
[2016-11-11] MEDS ORDERED: UDROBAC PO (10:21)
[2016-11-11] MEDS ORDERED: PRED10TA PO (10:21)
--- NOTE | 2016-11-11 10:25 | PDOCDIS ---
Discharge Instructions DIAGNOSIS Discharge Diagnosis: 1. sepsis pneumonia 2. oxygen dependent hypoxia 3. hypertension CONDITION Patient Condition: Stable HOME CARE INSTRUCTIONS: Diet Instructions: Low Fat /Cholesterol FOLLOW UP/APPOINTMENTS Appointments 1. Follow-up with your jail manager within a week 2. Follow-up with your primary care provider in 1-2 weeks BRAN HARRIS November 11, 2016 10:25
[2016-11-11] MEDS: AZITHROMYCIN 500MG/NS (PMX) 250 ML IVPB SCH (11:13)
== END 2016-11-11 13:33 | disposition home health service (06) | DRG 871 ==
LOC: E/R 09:29 → MS4 12:19
PROVIDERS: ADMIT Internal Medicine; ATTEND Internal Medicine
DX: A41.9 Sepsis, unspecified organism (principal); J18.9 Pneumonia, unspecified organism; Z99.81 Dependence on supplemental oxygen; E66.2 Morbid (severe) obesity with alveolar hypoventilation; I10 Essential (primary) hypertension; E66.9 Obesity, unspecified; Z68.31 Body mass index [BMI] 31.0-31.9, adult
CPT/HCPCS: 36415; 36600; 71010; 71250; 80048; 80053; 80061; 81001; 81003; 82803; 83605; 83690; 83880; 84484; 85025; 85610; 87040; 87086; 87400; 93005; 94640; 94644; 94660; 94664; 96365; 96375; 97162; J0360; J0456; J0696; J1940; J2930; J3370; J7030; J7040; J7512

== ENCOUNTER 2017-01-11 13:39 | Emergency (ER) | payer OTHER ==
[~2017-01-11] VITALS: Ht 152.4 cm; Wt 75.0 kg
[~2017-01-11 13:39] MED LIST changes: +ADV25050 INHALATION; -BACTDS PO; +BENA20TA48 PO; -DOCU-159 PO; -FURO20TA3 PO; +PRED10TA PO; +PRED20TA PO; +UDROBAC PO
[2017-01-11 13:42] VITALS: Ht 152.4 cm; Wt 75.0 kg
[2017-01-11] MEDS ORDERED: BUPIVACAINE 0.25% (MPF) 30 ML INJ INJ ONE (14:30)
[2017-01-11] MEDS ORDERED: IBUP-1542 PO (15:26)
--- NOTE | 2017-01-11 17:44 | ERD ---
ER Documentation Chief Complaint Date/Time DATE: 01/11/17 TIME: 17:38 Chief Complaint back pain x 3 days , fever since morning , on home o2 @ 2lt/mt HPI 66-year-old female with history of multiple comorbidities present ED complaining of left back pain 3 days. Pain is in the left buttock and left lumbar region. The pain is not radiating to the right buttock. Patient reports subjective fever this morning, but did not check her temperature. She took Tylenol at 8 AM. Tylenol did help with the pain. Denies recent falls or any other injury. Denies dysuria. Denies shortness of breath. Denies chest pain. Denies abdominal pain, nausea, vomiting, or diarrhea. ROS All systems reviewed and are negative except as per history of present illness. Medications Home Meds Active Scripts Ibuprofen* (Motrin*) 600 Mg Tab, 600 MG PO Q6H Y for PAIN AND OR ELEVATED TEMP, #30 TAB Prov:NATALI DANIEL CAREER BASED INTERVENTION COORDINATOR 01/11/17 Prednisone* (Prednisone*) 10 Mg Tab, 10 MG PO DAILY, #30 TAB 1. take 40mg by mouth daily for 3 days 2. then 30mg by mouth daily for 3 days 3. then 20mg by mouth daily for 3 days 4. then 10mg by mouth daily for 3 days Prov:BRAN HARRIS 11/11/16 Salmeterol Xinaf/Fluticasone* (Advair*) 250-50 Diskus Inhaler, 1 INH INHALATION BID, #1 INHALER Prov:BRAN HARRIS 11/11/16 Guaifenesin-Codeine Phosphate* (Robitussin* AC) 5 Ml Syrup, 10 ML PO Q4H Y for cough, #6 OZ Prov:BRAN HARRIS 11/11/16 Levofloxacin* (Levaquin*) 500 Mg Tablet, 500 MG PO DAILY@06 for 10 Days, TAB Prov:BRAN HARRIS 11/11/16 Albuterol Sulfate (Proair Respiclick) 90 Mcg Aer.pow.ba, 1 PUFF INHALATION Q4, # 1 BOTTLE Prov:BRAN HARRIS 11/11/16 Reported Medications Prednisone* (Prednisone*) 20 Mg Tab, 20 MG PO DAILY, TAB 11/07/16 Benazepril Hcl* (Benazepril Hcl*) 20 Mg Tablet, 20 MG PO DAILY, #30 TAB 11/07/16 Calcium Carbonate (Calcium Carbonate) 500 Mg Tab.chew, 1000 MG PO BID, TAB.CHEW 05/10/16 Amlodipine Besylate* (Amlodipine Besylate*) 10 Mg Tablet, 10 MG PO DAILY, #30 TAB 05/10/16 Gemfibrozil* (Gemfibrozil*) 600 Mg Tablet, 600 MG PO BID, TAB 05/10/16 Potassium Citrate* (Potassium Citrate* ER) 10 Meq Tablet.sa, 10 MEQ PO DAILY, TAB.SA 05/10/16 Losartan Potassium* (Losartan Potassium*) 100 Mg Tablet, 100 MG PO DAILY, TAB 05/10/16 Omeprazole* (Omeprazole*) 20 Mg Capsule.dr, 20 MG PO DAILY, #30 CAP 05/10/16 Aspirin* (Aspirin* EC) 81 Mg Tablet.dr, 81 MG PO DAILY, TAB 05/10/16 Allergies Allergies: Coded Allergies: No Known Drug Allergies (Verified Allergy, Unknown, 05/10/16) PMhx/Soc Coronary artery disease, congestive heart failure, COPD, hypertension Medical and Surgical Hx: pt denies Surgical Hx History of Surgery: No Anesthesia Reaction: No Hx Neurological Disorder: No Hx Respiratory Disorders: Yes Hx Cardiac Disorders: Yes Hx Psychiatric Problems: No Hx Miscellaneous Medical Probl: Yes (dysrhythmia,htn,CHF,asthma,o2 dependent, obesity) Hx Alcohol Use: Yes (BEER A LONG TIME AGO ) Hx Substance Use: No Hx Tobacco Use: Yes (QUIT 7 YEARS AGO) Smoking Status: Former smoker Physical Exam Vitals Vital Signs Date Time Temp Pulse Resp B/P Pulse Ox O2 Delivery O2 Flow Rate FiO2 01/11/17 13:42 98.1 89 18 127/74 96 Physical Exam General: Well-developed, well-nourished, conscious and coherent, in no distress Skin: Warm and dry without rash, good texture and turgor Head: Normocephalic without evidence of trauma Eyes: Sclera and conjunctivae normal; pupils equal, round, and reactive to light; extraocular movements are intact Neck: Supple without meningismus or adenopathy. Carotids are equal. Trachea midline. No bruits or JVD Chest: Normal AP diameter. Good expansion without retractions. Nontender. Lungs are clear to auscultate bilaterally with good tidal volume. On oxygen 2 L /min via nasal cannula Heart: Regular rate and rhythm. No murmur, rub, or gallops heard Abdomen: Soft and nontender without masses, guarding, or rebound. Bowel sounds are active. No hepatosplenomegaly Back: Without spinal or CVA tenderness. Muscle spasm and tenderness noted in the left buttock and left lumbar region. Pelvis: Nontender to palpation and stable to compression Extremities: Full range of motion. Good strength bilaterally. No clubbing, cyanosis, or edema. Peripheral pulses are intact. Sensation intact Neuro: Alert and oriented 4, GCS 15. Cranial nerves grossly intact. Motor and sensory exams nonfocal. Moves all extremities. Speech clear. Gait normal Results 24 hrs Current Medications Medications (Trade) Dose Ordered Sig/Justin Route PRN Reason Start Time Stop Time Status Last Admin Dose Admin Bupivacaine HCl (Marcaine 0.25% (Mpf) 30 ml) 30 ml ONCE ONCE INJ 01/11/17 14:30 01/11/17 14:31 DC 01/11/17 14:33 Procedures/MDM 66-year-old female with history of multiple comorbidities presented to ED with back pain 3 days. She does not have any midline spinal tenderness. Doubt spinal fracture, subluxation, disc herniation, spinal epidural abscess, or cauda equina syndrome. Patient reports subjective fever, but she is afebrile in the ED. She does not have any CVA tenderness or dysuria. I doubt UTI or pyelonephritis. Patient does have muscle spasm and tenderness. Procedure note: Trigger point injection Trigger point injection performed by me. 10 mL of bupivacaine is injected into left buttock and left lumbar region. Total number muscle groups injected: 2. Patient reports improvement of pain after the trigger point injection. Patient appears well, stable for discharge and outpatient management. Medical decision making shared with patient and family. Education provided to patient and family. Patient advised to apply heat and obtain massage to the area of pain. Patient and family expressed understanding of the plan. Medications on discharge: Ibuprofen. Follow-up: Primary care provider in 2-3 days or return to ED if worse. Departure Diagnosis: Primary Impression: Back spasm Condition: Stable Patient Instructions: Back Spasm, No Trauma [facility] Usted se smith hecho un examen mdico de control que le indica que no est en pascual condicin que requiera tratamiento urgente en el Departamento de Emergencia. Un estudio ms profundo y el tratamiento de segura condicin pueden esperar sin ningn riesgo hasta que usted sea atendida/o en el consultorio de segura mdico o pascual cl layla. Es responsabilidad suya arreglar pascual rui para el seguimiento del yash. MANEJO DE CONDICIONES NO URGENTES EN EL FUTURO 1) Si usted tiene un mdico de atencin primaria: Usted debera llamar a segura mdico de atencin primaria antes de venir al departamento de emergencia. Despus de las horas de consultorio, segura doctor o segura asociado/a est disponible por telfono. El mdico o enfermero de rik en el servicio telefnico puede asesorarle por refugio medio para atender el problema, o yash contrario se puede programar pascual rui. 2) Si usted no tiene un mdico de atencin primaria: Llame al mdico o clnica de referencia que aparece abajo jeff las horas de consultorio para hacer pascual rui para que le vean. CLINICAS: [facility] [phone] [facility] [place] [phone] [facility] [facility] [place] [phone] [facility] [place] [id number] [phone] [facility]. [place] [id number] [phone] [facility]. [phone] [address] Additional Instructions: Llame al doctor MAANA y kiki pascual RUI PARA DENTRO DE 2-3 CAVAZOS.Dgale a la secretaria que nosotros le instruimos hacer esta rui.Avise o llame si segura condicin se empeora antes de la rui. Regresa aqui si peor o no mejor. NATALI DANIEL NP Jan 11, 2017 17:44
== END 2017-01-11 15:57 | disposition home or self-care (01) ==
LOC: FTE 13:39
DX: M62.830 Muscle spasm of back (principal); I25.10 Atherosclerotic heart disease of native coronary artery without angina pectoris; I50.9 Heart failure, unspecified; J44.9 Chronic obstructive pulmonary disease, unspecified; I10 Essential (primary) hypertension; E66.9 Obesity, unspecified; R50.9 Fever, unspecified; Z68.32 Body mass index [BMI] 32.0-32.9, adult; Z87.891 Personal history of nicotine dependence; Z79.82 Long term (current) use of aspirin
CPT/HCPCS: 20552; Z7502; Z7610

== ENCOUNTER 2017-01-20 10:25 | Emergency (ER) | payer OTHER ==
[~2017-01-20] VITALS: Wt 76.5 kg
[~2017-01-20 10:25] MED LIST changes: +IBUP-1542 PO
[2017-01-20] MEDS ORDERED: morphine 10 MG INJ IM ONE (11:00)
[2017-01-20] MEDS ORDERED: KETOROLAC 30 MG INJ IM STA (11:00)
[2017-01-20] MEDS ORDERED: METH500T PO (12:17)
[2017-01-20] MEDS ORDERED: NAPR-685 PO (12:17)
[2017-01-20] MEDS ORDERED: HYDR-906 PO (12:17)
[2017-01-20 12:29] VITALS: BP 155/81; PULSE 66; RESP 20
--- NOTE | 2017-02-12 21:55 | ERD ---
ER Documentation Chief Complaint Date/Time DATE: 02/12/17 TIME: 21:45 Chief Complaint LOWER FLANK X 7 DAYS HPI 66 year old female with bilateral low back pain x 1 week. Worse with certain movements. No leg weakness. No dysuria. ROS All systems reviewed and are negative except as per history of present illness. Medications Home Meds Active Scripts Methocarbamol* (Robaxin*) 500 Mg Tab, 500 MG PO Q8, #18 TAB Prov:YAMILEXJACKSONMIGEL BANUELOS 01/20/17 Naproxen* (Naproxen*) 375 Mg Tablet, 375 MG PO BID, #20 TAB Prov:YAMILEXJAKCSON DO 01/20/17 Hydrocodone/Acetaminophen ([place] 5-325 Tablet) 1 Each Tablet, 1 EACH PO Q6, #16 TAB Prov:JACKSON KAMINSKI DO 01/20/17 Ibuprofen* (Motrin*) 600 Mg Tab, 600 MG PO Q6H Y for PAIN AND OR ELEVATED TEMP, #30 TAB Prov:NATALI DANIEL BELT LINE FEEDER 01/11/17 Prednisone* (Prednisone*) 10 Mg Tab, 10 MG PO DAILY, #30 TAB 1. take 40mg by mouth daily for 3 days 2. then 30mg by mouth daily for 3 days 3. then 20mg by mouth daily for 3 days 4. then 10mg by mouth daily for 3 days Prov:BRAN HARRIS 11/11/16 Salmeterol Xinaf/Fluticasone* (Advair*) 250-50 Diskus Inhaler, 1 INH INHALATION BID, #1 INHALER Prov:BRAN HARRIS 11/11/16 Guaifenesin-Codeine Phosphate* (Robitussin* AC) 5 Ml Syrup, 10 ML PO Q4H Y for cough, #6 OZ Prov:BRAN HARRIS 11/11/16 Levofloxacin* (Levaquin*) 500 Mg Tablet, 500 MG PO DAILY@06 for 10 Days, TAB Prov:BRAN HARRIS 11/11/16 Albuterol Sulfate (Proair Respiclick) 90 Mcg Aer.pow.ba, 1 PUFF INHALATION Q4, # 1 BOTTLE Prov:BRAN HARRIS 11/11/16 Reported Medications Prednisone* (Prednisone*) 20 Mg Tab, 20 MG PO DAILY, TAB 11/07/16 Benazepril Hcl* (Benazepril Hcl*) 20 Mg Tablet, 20 MG PO DAILY, #30 TAB 11/07/16 Calcium Carbonate (Calcium Carbonate) 500 Mg Tab.chew, 1000 MG PO BID, TAB.CHEW 05/10/16 Amlodipine Besylate* (Amlodipine Besylate*) 10 Mg Tablet, 10 MG PO DAILY, #30 TAB 05/10/16 Gemfibrozil* (Gemfibrozil*) 600 Mg Tablet, 600 MG PO BID, TAB 05/10/16 Potassium Citrate* (Potassium Citrate* ER) 10 Meq Tablet.sa, 10 MEQ PO DAILY, TAB.SA 05/10/16 Losartan Potassium* (Losartan Potassium*) 100 Mg Tablet, 100 MG PO DAILY, TAB 05/10/16 Omeprazole* (Omeprazole*) 20 Mg Capsule.dr, 20 MG PO DAILY, #30 CAP 05/10/16 Aspirin* (Aspirin* EC) 81 Mg Tablet.dr, 81 MG PO DAILY, TAB 05/10/16 Allergies Allergies: Coded Allergies: No Known Drug Allergies (Verified Allergy, Unknown, 05/10/16) PMhx/Soc Medical and Surgical Hx: pt denies Surgical Hx History of Surgery: No Anesthesia Reaction: No Hx Neurological Disorder: No Hx Respiratory Disorders: Yes (asthma,o2 dependent) Hx Cardiac Disorders: Yes (dysrhythmia,htn,CHF) Hx Psychiatric Problems: No Hx Miscellaneous Medical Probl: Yes (obesity) Hx Alcohol Use: Yes (BEER A LONG TIME AGO ) Hx Substance Use: No Hx Tobacco Use: Yes (QUIT 7 YEARS AGO) Smoking Status: Former smoker Physical Exam Physical Exam Const: [] No distress Head: Atraumatic Eyes: Normal Conjunctiva Skin: No petechiae or rashes Back: No midline or flank tenderness, bilateral paraspinal muscle spasm with tenderness. Ext: No cyanosis, or edema, fully ambulatory, 5/5 strength of legs, normal gait. Neur: Awake and alert Results 24 hrs Current Medications Medications (Trade) Dose Ordered Sig/Justin Route PRN Reason Start Time Stop Time Status Last Admin Dose Admin Morphine Sulfate (morphine) 4 mg ONCE ONCE IM 01/20/17 11:00 01/20/17 11:02 DC 01/20/17 11:17 Ketorolac Tromethamine (Toradol) 30 mg ONCE STAT IM 01/20/17 11:00 01/20/17 11:02 DC 01/20/17 11:16 Procedures/MDM Nontraumatic musculoskeletal low back pain with muscle spasm. She was given IM morphine and toradol which led to significant reduction in pain. Doubt cauda equina or fracture. Discharging with robaxin, norco and naproxen. Return precautions and PCP follow up. Departure Diagnosis: Primary Impression: Back spasm Additional Impression: Low back pain Condition: Stable Patient Instructions: Back Spasm, No Trauma Additional Instructions: Llame al doctor EKTA y kiki pascual RUI PARA DENTRO DE 2-3 CAVAZOS.Dgale a la secretaria que nosotros le instruimos hacer esta rui.Avise o llame si segura condicin se empeora antes de la rui. Regresa aqui si peor o no mejor. JACKSON KAMINSKI DO Feb 12, 2017 21:55
== END 2017-01-20 12:30 | disposition home or self-care (01) ==
LOC: E/R 10:25
DX: M62.830 Muscle spasm of back (principal); J45.909 Unspecified asthma, uncomplicated; I10 Essential (primary) hypertension; I50.9 Heart failure, unspecified; E66.9 Obesity, unspecified; Z79.82 Long term (current) use of aspirin; Z87.891 Personal history of nicotine dependence
CPT/HCPCS: 96372; J1885; J2270; Z7502

== ENCOUNTER 2017-05-31 08:34 | Emergency (ER) | payer OTHER ==
[~2017-05-31] VITALS: Ht 152.4 cm; Wt 70.0 kg
[~2017-05-31 08:34] MED LIST changes: +HYDR-906 PO; +METH500T PO; +NAPR-685 PO
[2017-05-31 08:37] VITALS: Ht 152.4 cm; Wt 70.0 kg
--- NOTE | 2017-05-31 08:52 | ERD ---
ER Documentation Chief Complaint Chief Complaint back pain x 3 days HPI 67y/o female patient with history of hypertension and recent diagnosis of pneumonia currently on treatment, presents to the emergency department with son- in-law c/o gradual onset of lower back pain, constant, that started 7 ago. The pain is dull, rated 7/10, without radiation. The symptoms are probably caused by a muscle spasm and are associated with decreased range of motion for lateral rotation. Aggravating factors: Bending over. Alleviating factors: Tylenol. Denies fever, chills, N/V/D. Positive history of previous episodes. Treatment attempted: Tylenol with mild improvement of symptoms. Previous evaluation: None. History was given by patient. ROS SYSTEMIC symptoms: no fever, chills, no night sweats, no weight loss EYE symptoms: No blurred vision, no eye discharge OTOLARYNGEAL symptoms: No hearing loss. No ear pain, no sore throat CARDIOVASCULAR symptoms: No chest pain or discomfort, no palpitations. PULMONARY symptoms: No dyspnea, no cough, no wheezing. GASTROINTESTINAL symptoms: No abdominal pain, no nausea, no vomiting, no diarrhea MUSCULOSKELETAL symptoms: No arthralgias, no muscle aches. NEUROLOGY symptoms: No confusion, no syncope, no numbness or tingling. SKIN: No rashes Medications Home Meds Active Scripts Hydrocodone/Acetaminophen ([place] 5-325 Tablet) 1 Each Tablet, 1 TAB PO Q6H Y for PAIN, #7 TAB Prov:BRISEYDA KAYE MD 05/31/17 Baclofen* (Baclofen*) 10 Mg Tablet, 10 MG PO Q8, #15 TAB Prov:BRISEYDA KAYE MD 05/31/17 Sulfamethoxazole/Trimethoprim* (Bactrim Ds* Tablet) 1 Each Tablet, 1 TAB PO BID for 3 Days, #6 TAB Prov:BRISEYDA KAYE MD 05/31/17 Methocarbamol* (Robaxin*) 500 Mg Tab, 500 MG PO Q8, #18 TAB Prov:JACKSON KAMINSKI DO 01/20/17 Naproxen* (Naproxen*) 375 Mg Tablet, 375 MG PO BID, #20 TAB Prov:JACKSON KAMINSKI DO 01/20/17 Hydrocodone/Acetaminophen ([place] 5-325 Tablet) 1 Each Tablet, 1 EACH PO Q6, #16 TAB Prov:JACKSON KAMINSKI DO 01/20/17 Ibuprofen* (Motrin*) 600 Mg Tab, 600 MG PO Q6H Y for PAIN AND OR ELEVATED TEMP, #30 TAB Prov:NATALI DANIEL NP 01/11/17 Prednisone* (Prednisone*) 10 Mg Tab, 10 MG PO DAILY, #30 TAB 1. take 40mg by mouth daily for 3 days 2. then 30mg by mouth daily for 3 days 3. then 20mg by mouth daily for 3 days 4. then 10mg by mouth daily for 3 days Prov:BRAN HARRIS 11/11/16 Salmeterol Xinaf/Fluticasone* (Advair*) 250-50 Diskus Inhaler, 1 INH INHALATION BID, #1 INHALER Prov:RBAN HARRIS 11/11/16 Guaifenesin-Codeine Phosphate* (Robitussin* AC) 5 Ml Syrup, 10 ML PO Q4H Y for cough, #6 OZ Prov:BRAN HARRIS 11/11/16 Levofloxacin* (Levaquin*) 500 Mg Tablet, 500 MG PO DAILY@06 for 10 Days, TAB Prov:BRAN HARRIS 11/11/16 Albuterol Sulfate (Proair Respiclick) 90 Mcg Aer.pow.ba, 1 PUFF INHALATION Q4, # 1 BOTTLE Prov:BRAN HARRIS 11/11/16 Reported Medications Prednisone* (Prednisone*) 20 Mg Tab, 20 MG PO DAILY, TAB 11/07/16 Benazepril Hcl* (Benazepril Hcl*) 20 Mg Tablet, 20 MG PO DAILY, #30 TAB 11/07/16 Calcium Carbonate (Calcium Carbonate) 500 Mg Tab.chew, 1000 MG PO BID, TAB.CHEW 05/10/16 Amlodipine Besylate* (Amlodipine Besylate*) 10 Mg Tablet, 10 MG PO DAILY, #30 TAB 05/10/16 Gemfibrozil* (Gemfibrozil*) 600 Mg Tablet, 600 MG PO BID, TAB 05/10/16 Potassium Citrate* (Potassium Citrate* ER) 10 Meq Tablet.sa, 10 MEQ PO DAILY, TAB.SA 05/10/16 Losartan Potassium* (Losartan Potassium*) 100 Mg Tablet, 100 MG PO DAILY, TAB 05/10/16 Omeprazole* (Omeprazole*) 20 Mg Capsule.dr, 20 MG PO DAILY, #30 CAP 05/10/16 Aspirin* (Aspirin* EC) 81 Mg Tablet.dr, 81 MG PO DAILY, TAB 05/10/16 Allergies Allergies: Coded Allergies: No Known Drug Allergies (Verified Allergy, Unknown, 05/31/17) PMhx/Soc History of Surgery: No Anesthesia Reaction: No Hx Neurological Disorder: No Hx Respiratory Disorders: Yes (asthma,o2 dependent) Hx Cardiac Disorders: Yes (dysrhythmia,htn,CHF) Hx Psychiatric Problems: No Hx Miscellaneous Medical Probl: Yes (obesity) Hx Alcohol Use: Yes (BEER A LONG TIME AGO ) Hx Substance Use: No Hx Tobacco Use: Yes (QUIT 7 YEARS AGO) Physical Exam Vitals Vital Signs Date Time Temp Pulse Resp B/P Pulse Ox O2 Delivery O2 Flow Rate FiO2 05/31/17 08:37 98.1 62 18 160/78 99 Physical Exam Patient is in mild distress due to pain, vital signs stable. Alert and fully oriented. EYES: PERRLA, EOMI, Sclera and conjunctiva appear normal. EARS: Canals clear, tympanic membranes WNL THROAT: Normal oropharynx. NECK: Supple, No lymphadenopathy. Full ROM without pain or tenderness. HEART: RRR, no rubs, murmurs, clicks or gallops. LUNGS: Clear to auscultation. ABDOMEN: Soft, non-tender without masses or hepatosplenomegaly. EXTREMITIES: No edema bilaterally. BACK: Full ROM, no deformity, normal back exam NEURO: Cranial nerves grossly intact, no motor or sensory deficit Results 24 hrs Laboratory Tests Test 05/31/17 09:09 Urine Color YELLOW Urine Clarity CLEAR Urine pH 5.0 Urine Specific Dixon 1.021 Urine Ketones NEGATIVEmg/dL Urine Nitrite NEGATIVEmg/dL Urine Bilirubin NEGATIVEmg/dL Urine Urobilinogen NEGATIVEmg/dL Urine Leukocyte Esterase TRACELeu/ul Urine Microscopic RBC 2/HPF Urine Microscopic WBC 5/HPF Urine Squamous Epithelial Cells FEW/HPF Urine Bacteria FEW/HPF Urine Hemoglobin NEGATIVEmg/dL Urine Glucose NEGATIVEmg/dL Urine Total Protein 1+mg/dl Current Medications Medications (Trade) Dose Ordered Sig/Justin Route PRN Reason Start Time Stop Time Status Last Admin Dose Admin Ketorolac Tromethamine (Toradol) 15 mg ONCE STAT IM 05/31/17 09:01 05/31/17 09:04 DC 05/31/17 09:18 [place] [address] Radiology Main Line: [phone] DIAGNOSTIC IMAGING REPORT Patient: STEPHANIE GANDHI : 1950 Age: 67 Sex: F MR #: [id number] DOS: 05/31/17 0901 Ordering MD: BRISEYDA KAYE MD Location: [facility] Room/Bed: PROCEDURE: XR Chest. CLINICAL INDICATION: History of pneumonia TECHNIQUE: PA and Lateral views of the chest were obtained. COMPARISON: Portable chest 11/09/2016 FINDINGS: The heart is mildly enlarged. There is atherosclerosis of the aorta. There is bilateral perihilar and infrahilar infiltrates. Peripheral lungs are clear. No evidence of pleural effusions and pneumothoraces. IMPRESSION: 1. Cardiomegaly. 2. Bilateral perihilar and infrahilar infiltrates may represent pulmonary edema and/or pneumonia. Recommend confirmation follow-up. RPTAT:AAJJ Physician Tram Date Time Electronically viewed and signed by Physician Tram on 05/31/2017 10:19 BM/ CC: BRISEYDA KAYE MD Procedures/MDM 67y/o female patient with history of hypertension, presents to the ED c/o low back pain for 7 days. Vital signs stable, Physical exam unremarkable, neurovascular exam intact. Differential diagnosis include but not limited to: Acute musculoskeletal injury, herniated disc, urolithiasis, UTI, arthritis, degenerative disc disease. Low suspicion for vertebral fracture, cauda equina syndrome, psoas abscess. Pertinent Data: UA: elev WBC, (+) leukStear Radiology: CXR: 1. Cardiomegaly. 2. Bilateral perihilar and infrahilar infiltrates may represent pulmonary edema and/or pneumonia. Recommend confirmation follow-up. Physical examination and clinical presentation consistent most likely with acute cystitis, back muscle spasm. During the ED course the patient remained stable, no new complaints. Received treatment with Toradol presenting overall improvement of the symptoms. Results and clinical impression discussed with patient who agrees with management. The patient is stable to be treated outpatient and will be discharged home with a Rx for Bactrim DS for 3 days, baclofen and [place]el[place] as needed. Side effects of prescribed medications (headache, rash, nausea, vomiting, diarrhea) were reviewed. Side effects of prescribed opiates (drowsiness, habituation) were reviewed. Side effects of prescribed NSAID medication (GI distress, edema, bleeding, HTN) were reviewed. The patient was instructed to follow up with the primary care provider in the next 48h. If symptoms persist, worsen or new symptoms develop, then patient should return to the ED immediately. Instructions explained and given to patient in Arabic with acknowledgment and demonstrated understanding. Disclaimer: Inadvertent spelling and grammatical errors are likely due to EHR/ dictation software use and do not reflect on the overall quality of patient care. Also, please note that the electronic time recorded on this note does not necessarily reflect the actual time of the patient encounter. Departure Diagnosis: Primary Impression: Acute cystitis Condition: Stable Additional Instructions: Muchas kassandra por [facility] para segura servicio. Esperamos que en segura visita a la asher de emergencia segura problema medico haya sido solucionado y que se sienta mucho mejor. Para estar seguros que segura mejoria sigue en proceso, le pedimos el favor de hacer pascual ruddy de seguimiento medico con segura doctor primario en los proximos 2-4 gillis. Lleve con usted estos documentos y las medicinas recetadas. Si christen sintomas empeoran y no puede chung a segura doctor, por favor regrese a asher de emergencia. En yash que usted no tenga un mdico de atencin primaria: Llame al mdico o clnica comunitaria de referencia que aparece abajo jeff las horas de consultorio para hacer pascual ruddy para que le vean. CLINICAS: [facility] [phone] [facility] [phone] [address] [facility] [phone] [address] [facility] [phone] [facility] [phone] [facility]. [phone] BRISEYDA CHARLTON MD May 31, 2017 08:52
[2017-05-31] MEDS ORDERED: KETOROLAC 15 MG INJ IM STA (09:01)
[2017-05-31 09:42] LABS: ADD UMIC YES; UR ASCORBIC ACID NEGATIVE (NEGATIVE); UR BACTERIA FEW /HPF (NONE SEEN); UR BILIRUBIN (Dip) NEGATIVE (NEGATIVE); UR BLOOD (Dip) NEGATIVE (NEGATIVE); UR CLARITY CLEAR (CLEAR); UR COLOR YELLOW (YELLOW); UR GLUCOSE (Dip) NEGATIVE (NEGATIVE); UR KETONES (Dip) NEGATIVE (NEGATIVE); UR LEUKOCYTE ESTERASE (Dip) TRACE Leu/ul (NEGATIVE); UR NITRITE (Dip) NEGATIVE (NEGATIVE); UR RBC 2 /HPF (0-5); UR SPECIFIC GRAVITY (Dip) 1.021 (1.003-1.030); UR SQUAMOUS EPITHELIAL CELL FEW /HPF (FEW); UR TOTAL PROTEIN (Dip) 1+ mg/dl (NEGATIVE); UR UROBILINOGEN (Dip) NEGATIVE (NEGATIVE)
--- NOTE | 2017-05-31 10:19 | RADRPT ---
PROCEDURE: XR Chest. CLINICAL INDICATION: History of pneumonia TECHNIQUE: PA and Lateral views of the chest were obtained. COMPARISON: Portable chest 11/09/2016 FINDINGS: The heart is mildly enlarged. There is atherosclerosis of the aorta. There is bilateral perihilar an d infrahilar infiltrates. Peripheral lungs are clear. No evidence of pleural effusions and pneumotho races. IMPRESSION: 1. Cardiomegaly. 2. Bilateral perihilar and infrahilar infiltrates may represent pulmonary edema and/or pneumonia. R ecommend confirmation follow-up. RPTAT:AAJJ Physician Tram Date Time Electronically viewed and signed by Jax Raymundo Physician on 05/31/2017 10:19 BM/
[2017-05-31] MEDS ORDERED: SULF1TAB31 PO (10:21)
[2017-05-31] MEDS ORDERED: HYDR-906 PO (10:35)
[2017-05-31] MEDS ORDERED: BACL10TA PO (10:35)
--- NOTE | 2017-05-31 10:39 | RADRPT ---
PROCEDURE: Lumbar spine radiographs CLINICAL INDICATION: Pain. COMPARISON: None relevant listed. TECHNIQUE: AP, lateral, and coned-down L5-S1 views. FINDINGS: Alignment is anatomic. The usual lumbar lordosis is preserved. There are 6 non-rib bearing lumbar vertebral bodies. Inferior T12 endplate Schmorl's node with approximately 50% height loss. Moderate L4-L5 disc height loss. At L5-S1, mild right and moderate left facet arthropathy. Arterial calcifications. IMPRESSION: 1. Mild T12 vertebral body height loss. 2. L5-S1 spondylosis and bilateral facet arthropathy. 3. Transitional lumbosacral anatomy. RPTAT: PP Physician Ron Date Time Electronically viewed and signed by Physician Ron on 05/31/2017 10:39 LG/
[2017-05-31 10:45] VITALS: BP 154/72; PULSE 66; RESP 18; TEMP 98.1
== END 2017-05-31 10:50 | disposition home or self-care (01) ==
LOC: FTE 08:34
DX: N30.00 Acute cystitis without hematuria (principal); J45.909 Unspecified asthma, uncomplicated; I50.9 Heart failure, unspecified; I10 Essential (primary) hypertension; Z79.82 Long term (current) use of aspirin; Z87.891 Personal history of nicotine dependence
CPT/HCPCS: 71020; 72100; 81001; 96372; J1885; Z7502

== ENCOUNTER 2017-06-02 17:16 | Emergency (ER) | payer OTHER ==
[~2017-06-02] VITALS: Ht 157.5 cm; Wt 72.7 kg
[~2017-06-02 17:16] MED LIST changes: +BACL10TA PO; +SULF1TAB31 PO
[2017-06-02 17:32] VITALS: Ht 157.5 cm; Wt 72.7 kg
[2017-06-02] MEDS ORDERED: KETOROLAC 30 MG INJ IM STA (18:50)
[2017-06-02] MEDS ORDERED: morphine 4 MG/ML VIAL IM STA (18:50)
[2017-06-02] MEDS ORDERED: ONDANSETRON (ODT) 4 MG TAB ODT STA (19:28)
[2017-06-02] MEDS ORDERED: HYDR-902 PO (19:58)
--- NOTE | 2017-06-02 20:01 | ERD ---
ER Documentation Chief Complaint Chief Complaint Pt with back pain X 1 week . Seen here 2 days ago for same. HPI 67-year-old female presents with right upper back pain for last week. She is here 2 days ago and has signs of a mild UTI was treated with Bactrim. She also had days without acute findings. She has persistent pain in the right mid back. She denies any history of trauma, fevers, shortness breath, chest pain, urinary complaints, bowel bladder incontinence, weakness. Patient has had several visits in this ER for similar complaints of back spasm. ROS All systems reviewed and are negative except as per history of present illness. Medications Home Meds Active Scripts Hydrocodone/Acetaminophen ([place] 10-325 Tablet) 1 Each Tablet, 1 TAB PO Q6H Y for PAIN, #14 TAB Prov:YENI DIAZ MD 06/02/17 Hydrocodone/Acetaminophen ([place] 5-325 Tablet) 1 Each Tablet, 1 TAB PO Q6H Y for PAIN, #7 TAB Prov:BRISEYDA KAYE MD 05/31/17 Baclofen* (Baclofen*) 10 Mg Tablet, 10 MG PO Q8, #15 TAB Prov:BRISEYDA KAYE MD 05/31/17 Sulfamethoxazole/Trimethoprim* (Bactrim Ds* Tablet) 1 Each Tablet, 1 TAB PO BID for 3 Days, #6 TAB Prov:BRISEYDA KAYE MD 05/31/17 Methocarbamol* (Robaxin*) 500 Mg Tab, 500 MG PO Q8, #18 TAB Prov:JACKSON KAMINSKI DO 01/20/17 Naproxen* (Naproxen*) 375 Mg Tablet, 375 MG PO BID, #20 TAB Prov:JACKSON KAMINSKI DO 01/20/17 Hydrocodone/Acetaminophen ([place] 5-325 Tablet) 1 Each Tablet, 1 EACH PO Q6, #16 TAB Prov:JACKSON KAMINSKI DO 01/20/17 Ibuprofen* (Motrin*) 600 Mg Tab, 600 MG PO Q6H Y for PAIN AND OR ELEVATED TEMP, #30 TAB Prov:NATALI DANIEL NP 01/11/17 Prednisone* (Prednisone*) 10 Mg Tab, 10 MG PO DAILY, #30 TAB 1. take 40mg by mouth daily for 3 days 2. then 30mg by mouth daily for 3 days 3. then 20mg by mouth daily for 3 days 4. then 10mg by mouth daily for 3 days Prov:BRAN HARRIS 11/11/16 Salmeterol Xinaf/Fluticasone* (Advair*) 250-50 Diskus Inhaler, 1 INH INHALATION BID, #1 INHALER Prov:BRAN HARRIS 11/11/16 Guaifenesin-Codeine Phosphate* (Robitussin* AC) 5 Ml Syrup, 10 ML PO Q4H Y for cough, #6 OZ Prov:BRAN HARRIS 11/11/16 Levofloxacin* (Levaquin*) 500 Mg Tablet, 500 MG PO DAILY@06 for 10 Days, TAB Prov:BRAN HARRIS 11/11/16 Albuterol Sulfate (Proair Respiclick) 90 Mcg Aer.pow.ba, 1 PUFF INHALATION Q4, # 1 BOTTLE Prov:BRAN HARRIS 11/11/16 Reported Medications Prednisone* (Prednisone*) 20 Mg Tab, 20 MG PO DAILY, TAB 11/07/16 Benazepril Hcl* (Benazepril Hcl*) 20 Mg Tablet, 20 MG PO DAILY, #30 TAB 11/07/16 Calcium Carbonate (Calcium Carbonate) 500 Mg Tab.chew, 1000 MG PO BID, TAB.CHEW 05/10/16 Amlodipine Besylate* (Amlodipine Besylate*) 10 Mg Tablet, 10 MG PO DAILY, #30 TAB 05/10/16 Gemfibrozil* (Gemfibrozil*) 600 Mg Tablet, 600 MG PO BID, TAB 05/10/16 Potassium Citrate* (Potassium Citrate* ER) 10 Meq Tablet.sa, 10 MEQ PO DAILY, TAB.SA 05/10/16 Losartan Potassium* (Losartan Potassium*) 100 Mg Tablet, 100 MG PO DAILY, TAB 05/10/16 Omeprazole* (Omeprazole*) 20 Mg Capsule.dr, 20 MG PO DAILY, #30 CAP 05/10/16 Aspirin* (Aspirin* EC) 81 Mg Tablet.dr, 81 MG PO DAILY, TAB 05/10/16 Allergies Allergies: Coded Allergies: No Known Drug Allergies (Verified Allergy, Unknown, 05/31/17) PMhx/Soc History of Surgery: No Anesthesia Reaction: No Hx Neurological Disorder: No Hx Respiratory Disorders: Yes (asthma,o2 dependent) Hx Cardiac Disorders: Yes (dysrhythmia,htn,CHF) Hx Psychiatric Problems: No Hx Miscellaneous Medical Probl: Yes (obesity) Hx Alcohol Use: Yes Hx Substance Use: No Hx Tobacco Use: Yes (QUIT 7 YEARS AGO) Smoking Status: Former smoker Physical Exam Vitals Vital Signs Date Time Temp Pulse Resp B/P Pulse Ox O2 Delivery O2 Flow Rate FiO2 06/02/17 17:32 98.2 95 20 102/52 94 Physical Exam Const: [] Alert, uncomfortable due to pain. Head: Atraumatic Eyes: Normal Conjunctiva ENT: Normal External Ears, Nose and Mouth. Neck: Full range of motion..~ No meningismus. Resp: Clear to auscultation bilaterally Cardio: Regular rate and rhythm, no murmurs Abd: Soft, non tender, non distended. Normal bowel sounds Skin: No petechiae or rashes Back: No midline tenderness. Patient has exquisite reproducible tenderness approximately L1 on the right paraspinous area. She has no gross CVA tenderness. There is no skin changes or deformities. There is no midline tenderness. Ext: No cyanosis, or edema Neur: Awake and alert Psych: Normal Mood and Affect Results 24 hrs Current Medications Medications (Trade) Dose Ordered Sig/Justin Route PRN Reason Start Time Stop Time Status Last Admin Dose Admin Morphine Sulfate (morphine) 4 mg ONCE STAT IM 06/02/17 18:50 06/02/17 18:52 DC 06/02/17 19:03 Ketorolac Tromethamine (Toradol) 30 mg ONCE STAT IM 06/02/17 18:50 06/02/17 18:52 DC 06/02/17 19:04 Ondansetron HCl (Zofran Odt) 8 mg ONCE STAT ODT 06/02/17 19:28 06/02/17 19:29 DC 06/02/17 19:33 Procedures/MDM Patient presents with reproducible superficial right mid back pain. It appears to be musculoskeletal. Doubt UTI as cause of symptoms. Patient shows no signs or symptoms to suggest additional emergent etiologies such as aortic dissection , pneumonia, renal colic there is no evidence of deficits or signs to suggest epidural abscess, significant bacterial infection. She will be given Toradol here as well as morphine 4 mg IM for acute pain and Zofran for nausea. She will be treated with short course of Mcad[place] and primary care follow-up, return precautions and further observation at home. The patient was stable with no new complaints during the ER course. Clinically, there is no current evidence to suggest meningitis, sepsis, acute abdomen, pneumonia, acute coronary syndrome , pulmonary embolism, or any other emergent condition appearing to require further evaluation or hospitalization. The patient should certainly return for any new or worsening symptoms per the aftercare instructions. They should otherwise follow-up with her primary care doctor for reevaluation this week. Departure Diagnosis: Primary Impression: Back pain Back pain location: low back pain Chronicity: acute Back pain laterality: right Sciatica presence: without sciatica Qualified Code: M54.5 - Acute right-sided low back pain without sciatica Additional Impression: Back spasm Condition: Stable Patient Instructions: Back Spasm, No Trauma Additional Instructions: Cheque otro vez con segura doctor primario en el proximo gillis or regresa para mas o nueva simptomas. YENI DIAZ MD Jun 02, 2017 20:01
[2017-06-02] MEDS ORDERED: CYCL-319 PO (20:02)
[2017-06-02 20:50] VITALS: BP 125/63; PULSE 69; RESP 20; TEMP 98.3
== END 2017-06-02 20:51 | disposition home or self-care (01) ==
LOC: FTE 17:16
DX: M54.5 Low back pain (principal); M62.830 Muscle spasm of back; J45.909 Unspecified asthma, uncomplicated; I10 Essential (primary) hypertension; I50.9 Heart failure, unspecified; E66.9 Obesity, unspecified; Z87.891 Personal history of nicotine dependence; Z79.82 Long term (current) use of aspirin
CPT/HCPCS: 96372; J1885; J2270; Z7502; Z7610